=== PATIENT | female | born 2005 | race Caucasian/White ===

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

== ENCOUNTER 2024-02-26 18:44 | Emergency (ER) | payer MEDICAID, SELFPAY ==
[2024-02-26 18:47] VITALS: BP 109/73; PULSE 84; RESP 18; TEMP 36.7; O2SAT 100; BMI 21.8
--- NOTE | 2024-02-26 18:58 | CRLHL7_ITS ---
For Patients: As a result of the Century Cures Act, medical imaging exams and procedure reports are released immediately into your electronic medical record. You may view this report before your referring provider. If you have questions, please contact your health care provider. INDICATION: Spotting. TECHNIQUE: Ultrasound OB pelvis transvaginal. Real-time guadarrama-scale imaging of the pelvis was performed. COMPARISON: None. FINDINGS: There is a single intrauterine gestation. No cardiac activity is identified. The embryo`s crown rump length measurement of 0.3 cm corresponds to a gestational age of 5 weeks 6 days with a sonographic due date of 10/21/2024. Yolk sac is not visualized. The placenta has not yet developed. There is sign of perigestational hemorrhage, with crescentic shape hypoechoic structure adjacent to the gestational sac measuring 1.7 x 1 x 0.4 cm. The ovaries are of normal size. Corpus luteal cyst in the left ovary. There are no suspicious fluid collections noted in the cul-de-sac. IMPRESSION: 1. Single intrauterine without cardiac activity identified. Differential considerations include early versus early loss. Recommend serial beta HCG and follow-up pelvic ultrasound as clinically indicated. 2. Small subchorionic hemorrhage. Dictated by Kel Flower MD @ 02/26/2024 9:16:13 PM (Electronically Signed)
--- NOTE | 2024-02-26 18:58 | ED.GENADULT ---
HPI - General Adult General Chief complaint: Vaginal Bleeding <Chaya Martinez MD - Last Filed: 02/26/24 19:02> Stated complaint: 7 week , having spotting <Chaya Martinez MD - Last Filed: 02/26/24 19:02> Time Seen by Provider: 02/26/24 18:45 <Chaya Martinez MD - Last Filed: 02/26/24 19:02> Source: patient <Chaya Martinez MD - Last Filed: 02/26/24 19:02> Mode of arrival: ambulatory <Chaya Martinez MD - Last Filed: 02/26/24 19:02> Limitations: no limitations <Chaya Martinez MD - Last Filed: 02/26/24 19:02> History of Present Illness HPI narrative: 18-year-old female at 7 weeks gestation presents today with vaginal spotting. She states that it occurred for about 1 hour today. She denies other symptoms including dizziness, lightheadedness chest pain or abdominal pain. No cramping. Denies any current medical issues. Denies taking any medications. <Chaya Martinez MD - Last Filed: 02/26/24 19:02> Related Data Home medications: Home Medications ?Medication ?Instructions ?Recorded ?Confirmed No Known Home Medications 10/10/23 02/26/24 <Chaya Martinez MD - Last Filed: 02/26/24 19:02> Allergies/adverse reactions: Allergies Allergy/AdvReac Type Severity Reaction Status Date / Time No Known Drug Allergies Allergy Verified 02/26/24 18:53 <Chaya Martinez MD - Last Filed: 02/26/24 19:02> Review of Systems Status of ROS: Reports: 10 or more systems reviewed and unremarkable except as noted in History and below <Chaya Martinez MD - Last Filed: 02/26/24 19:02> PFSH PFSH Social History: Social History Smoking Status: Never smoker Do you use any of these nicotine containing products: None and Vaping Products How often do you have a drink containing alcohol: never How often do you have six or more drinks on one occasion: Never AUDIT-C Alcohol total score: 0 Non-prescribed substance use: denies use <Chaya Martinez MD - Last Filed: 02/26/24 19:02> Exam Narrative: Exam Narrative: Well-nourished well-developed patient in no acute distress. Alert and oriented. Answers questions appropriately. Mood and affect are appropriate. Thoughts are goal oriented and rational. No tangential or magical thinking noted. Patient speaks in full sentences without needing to catch her breath. HEENT: Normocephalic atraumatic. Pupils are equally round reactive to light. Extraocular muscles are intact. Conjunctivae are moist without any icterus noted. Moist mucous membranes. Cardiovascular: Heart is regular rate and rhythm. Lungs: Clear to auscultation bilaterally . Abdomen: Soft and nontender nondistended with normal bowel sounds. Extremities: Bilateral lower extremities are without edema. Skin: Well perfused without any obvious rashes. <Chaya Martinez MD - Last Filed: 02/26/24 19:02> Const: Vital Signs, click to edit/add: Vital Signs - 24 hr 02/26/24 18:47 Temperature 98.1 F Pulse Rate [Right Pulse Oximeter] 84 Respiratory Rate 18 Blood Pressure [Ri ght Upper Arm] 109/73 Pulse Oximetry 100 Oxygen Delivery Me thod Room Air <Chaya Martinez MD - Last Filed: 02/26/24 19:02> Vital Signs, click to edit/add: Vital Signs - 24 hr 02/26/24 18:47 Temperature 98.1 F Pulse Rate [Right Pulse Oximeter] 84 Respiratory Rate 18 Blood Pressure [Ri ght Upper Arm] 109/73 Pulse Oximetry 100 Oxygen Delivery Me thod Room Air <Delano Chase DO - Last Filed: 02/26/24 21:22> Course Course ED Course: Will proceeded with obstetrical ultrasound. Care transferred to oncoming physician. <Chaya Martinez MD - Last Filed: 02/26/24 19:02> Vital Signs Vital signs: Initial Vital Signs Temperature 98.1 F 02/26/24 18:47 Temperature Source Temporal Artery Scan 02/26/24 18:47 Pulse Rate 84 02/26/24 18:47 Pulse Rhythm Regular 02/26/24 18:47 Respiratory Rate 18 02/26/24 18:47 Blood Pressure 109/73 02/26/24 18:47 Blood Pressure Mean 85 02/26/24 18:47 Blood Pressure Position Sitting 02/26/24 18:47 Pulse Oximetry 100 02/26/24 18:47 Oxygen Delivery Method Room Air 02/26/24 18:47 Vital Signs Temperature 98.1 F 02/26/24 18:47 Pulse Rate 84 02/26/24 18:47 Respiratory Rate 18 02/26/24 18:47 Blood Pressure 109/73 02/26/24 18:47 Pulse Oximetry 100 02/26/24 18:47 Oxygen Delivery Method Room Air 02/26/24 18:47 Temperature 98.1 F 02/26/24 18:47 Pulse Rate 84 02/26/24 18:47 Respiratory Rate 18 02/26/24 18:47 Blood Pressure 109/73 02/26/24 18:47 Pulse Oximetry 100 02/26/24 18:47 Oxygen Delivery Method Room Air 02/26/24 18:47 <Chaya Martinez MD - Last Filed: 02/26/24 19:02> Initial Vital Signs Temperature 98.1 F 02/26/24 18:47 Temperature Source Temporal Artery Scan 02/26/24 18:47 Pulse Rate 84 02/26/24 18:47 Pulse Rhythm Regular 02/26/24 18:47 Respiratory Rate 18 02/26/24 18:47 Blood Pressure 109/73 02/26/24 18:47 Blood Pressure Mean 85 02/26/24 18:47 Blood Pressure Position Sitting 02/26/24 18:47 Pulse Oximetry 100 02/26/24 18:47 Oxygen Delivery Method Room Air 02/26/24 18:47 Vital Signs Temperature 98.1 F 02/26/24 18:47 Pulse Rate 84 02/26/24 18:47 Respiratory Rate 18 02/26/24 18:47 Blood Pressure 109/73 02/26/24 18:47 Pulse Oximetry 100 02/26/24 18:47 Oxygen Delivery Method Room Air 02/26/24 18:47 Temperature 98.1 F 02/26/24 18:47 Pulse Rate 84 02/26/24 18:47 Respiratory Rate 18 02/26/24 18:47 Blood Pressure 109/73 02/26/24 18:47 Pulse Oximetry 100 02/26/24 18:47 Oxygen Delivery Method Room Air 02/26/24 18:47 <Delano Chase DO - Last Filed: 02/26/24 21:22> Medical Decision Making MDM Narrative Medical decision making narrative: Patient was signed out to me by my colleague pending ultrasound. Per epic chart review she is Rh positive. Does not require RhoGAM. Ultrasound was done showing a single intrauterine without cardiac activity identified. Differential includes early versus miscarriage. Serial beta-hCG was recommended. Beta-hCG was ordered and can be trended outpatient. She also has a small subchorionic hemorrhage. Patient will be discharged. She is agreeable to this plan. Patient's vital signs stayed stable throughout her time in the emergency department and she continues to be asymptomatic. <Delano Chase DO - Last Filed: 02/26/24 21:22> Imaging Data Pelvic ultrasound: Attestation: I have reviewed the pertinent imaging results. <Delano Chase DO - Last Filed: 02/26/24 21:22> Radiologist's impression: 1. Single intrauterine without cardiac activity identified. Differential considerations include early versus early loss. Recommend serial beta HCG and follow-up pelvic ultrasound as clinically indicated. 2. Small subchorionic hemorrhage. Dictated by Kel Flower MD @ 02/26/2024 9:16:13 PM <eDlano Chase DO - Last Filed: 02/26/24 21:22> Discharge Plan Discharge Clinical Impression: Subchorionic hemorrhage in first trimester <Chaya Martinez MD - Last Filed: 02/26/24 19:02> Patient Disposition: Home, Self-Care <Chaya Martinez MD - Last Filed: 02/26/24 19:02> Condition: Stable <Chaya Martinez MD - Last Filed: 02/26/24 19:02> Instructions: Subchorionic Hemorrhage (ED) <Chaya Martinez MD - Last Filed: 02/26/24 19:02> Additional Instructions: Follow-up with your OB provider early next week for repeat blood work and possible follow-up ultrasound. Inform them that you have a small subchorionic hemorrhage. Return to emergency department for new or worsening symptoms. <Chaya Martinez MD - Last Filed: 02/26/24 19:02> Prescriptions: No Action No Known Home Medications <Chaya Martinez MD - Last Filed: 02/26/24 19:02> Follow Up/Referrals: Provider,Not a Local [Primary Care Provider] - <Chaya Martinez MD - Last Filed: 02/26/24 19:02> Stand Alone Forms: [facility] Info Instructions <Chaya Martinez MD - Last Filed: 02/26/24 19:02>
--- OUTSIDE RECORDS SUMMARY | 2024-02-26 19:11 | XMS_ITS | Clinical Summary ---
Author Organization [facility] Address [place], [place] [address] Care Team Providers Care Sales Project Coordinator Name Role Phone Bryanna Gordon NP Primary Care Provider Allergies No known active allergies Medications Medication Sig Dispensed Refills Start Date End Date Status FLUoxetine (PROZAC) 10 mg capsuleIndications :Anxiety,Depressio n, recurrent (HC) Take 3 capsules daily in am. 90 Capsule 5 04/21/2023 Active hydrOXYzine HCL (ATARAX) 25 mg tabletIndications: Anxiety,Panic attack Take 1/2-1 tab daily as needed for anxiety,panic, situational stress. 25 Tablet 04/21/2023 Active Hospital, Clinic, or Other Facility Administered Medication Ordered Dose Route Frequency Start Date End Date Status medroxyPROGESTERone acetate (contraceptive) (DEPO-PROVERA) injection 150 mgIndications:Depo-Pr overa contraceptive status 150 mg IM Q 3 MONTHS (12 WEEKS) 08/28/2023 07/29/2024 Active Active Problems Problem Noted Date Diagnosed Date Less than 8 weeks gestation of 024 Overview (02/22/2024): Estimated Date of Delivery: 10/14/24 Patient's last menstrual period was 01/08/2024 (exact date). GBS: 28wk labs: Last Tdap: 04/11/22 Last Flu vaccine: none OB Labs: No Known Allergies OB History Para Term AB Living 2 1 1 0 0 1 SAB IAB Ectopic Multiple Live Births 0 0 0 0 1 # Outcome Date GA Lbr /2nd Weight Sex Type Anes PTL Lv 2 Current 1 Term 11/17/20 40w4d 3.23 kg (7 lb 2 oz) F Vag STEPHAN Name: Morena Past Medical History: . Date COVID 2021 Depression 2021 Migraine headache 2014 Past Surgical History: . Laterality Date NO PREVIOUS SURGERY #2 Problems (from 02/22/24 to present) No problems associated with this episode. Skylar Bliss RN ....02/22/2024 2:18 PM PTSD (post-traumatic stress disorder) 11/04/2021 Depression, recurrent 11/04/2021 Anxiety 11/04/2021 03/26/2020 Overview (09/05/2020): Estimated Date of Delivery: 11/07/20 Patient's last menstrual period was 02/01/2020 (exact date). Last Tdap- not on file Last Flu vaccine- not on file Glucose (GTT) result- Component Latest Ref Rng & Units 08/22/2020 HEMOGLOBIN 12.0 - 16.0 g/dL 11.1 (L) MCV 78 - 102 fL 89 TREPONEMA PALLIDUM Negative Negative GLUCOSE,GESTATIONAL 65 - 139 mg/dL 133 20 week US: FINDINGS: Sonographic imaging demonstrates a single living intrauterine gestation. Fetus demonstrates a regular cardiac rate of 146 beats per minute. Fetus has a breech orientation and longitudinal lie. The placenta lies anteriorly without evidence of placenta previa. Amniotic fluid volume appears normal. Single deepest vertical pocket: 4.6 cm. The cervix is closed and measures 4.7 cm in length. The composite ultrasound gestational age is calculated at 19 weeks 2 days with an estimated sonographic due date of November 12, 2020. No Known Allergies OB History Para Term AB Living 1 0 0 0 0 0 SAB TAB Ectopic Multiple Live Births 0 0 0 0 0 # Outcome Date GA Lbr /2nd Weight Sex Delivery Anes PTL Lv 1 Current Create lab flowsheet for OB labs- Component Latest Ref Rng & Units 03/03/2020 03/05/2020 03/12/2020 11:01 AM CHLAMYDIA PROBE Negative N GONORRHOEAE PROBE Negative ANTIBODY SCREEN Negative Negative SPECIMEN EXPIRATION DATE/TIME 03/15/20 23:59 HEMOGLOBIN 12.0 - 16.0 g/dL 12.3 MCV 78 - 102 fL 83 PLATELET COUNT 140 - 440 thou/cu mm 217 MPV 6.5 - 11.0 fL 12.2 (H) RUBELLA IGG ANTIBODY HIV-1/HIV-2 ANTIBODY Non-Reactive Non-Reactive HBSAG Nonreactive Nonreactive HEMOGLOBIN A1C SCREENING <=6.4 % 5.4 ABORH B Rh Positive TREPONEMA PALLIDUM Negative Negative Component Latest Ref Rng & Units 03/12/2020 03/12/2020 11:01 AM 11:01 AM CHLAMYDIA PROBE N GONORRHOEAE PROBE ANTIBODY SCREEN Negative SPECIMEN EXPIRATION DATE/TIME HEMOGLOBIN 12.0 - 16.0 g/dL MCV 78 - 102 fL PLATELET COUNT 140 - 440 thou/cu mm MPV 6.5 - 11.0 fL RUBELLA IGG ANTIBODY Negative 0.14 (L) HIV-1/HIV-2 ANTIBODY Non-Reactive HBSAG Nonreactive HEMOGLOBIN A1C SCREENING <=6.4 % ABORH TREPONEMA PALLIDUM Negative Past Medical History: . Date No significant family history Past Surgical History: . Laterality Date NO PREVIOUS SURGERY No data on file. Problems (from 03/12/20 to present) No problems associated with this episode. Sabiha Guzman RN.....03/26/2020 9:29 AM Estimated Date of Delivery Comme nts Yes 10/14/2024 Based on last me nstrual period of 01/08/2024 (Exact Date) Encounters Date Type Department Care Team Description 02/22/2024 1:00 PM STATIONARY BOILER FIREMAN Phone OB Encounter [facility] [address] [place] [address] Education (RN Ob Intake) 02/22/2024 Travel from Last 3 Months Immunizations Name Administration Dates Next Due HPV 9 (Gardasil 9) 04/21/2023,04/11/2022, 022 Hepatitis A (Peds) 04/21/2023,07/31/2022 Hepatitis B (Peds) 04/21/2023 MENINGOCOCCAL VACCINE 2 VIAL [id number] (MENVEO) 04/11/2022 MMR 07/31/2022,12/03/2021 Tdap 04/11/2022 Varicella Vaccine 07/31/2022,12/03/2021 Family History Medical History Relation Name Comments Addiction problem Father alcohol an d drugs Addiction problem Mother drugs and alcohol Relation Name Status Comments Father Mother Social History Tobacco Use Types Packs/Day Years Used Date Smoking Tobacco: Never Passive Smoke Exposure: Yes Smokeless Tobacco: Never Tobacco Cessation:Counseling Given: Not Answered Comments:grandma and mom smokes Alcohol Use Standard Drinks/Week Comments Not Currently 0 (1 standard drink = 0.6 oz pur e alcohol) PHQ-2 Answer Date Recorded PHQ-2 TOTAL SCORE 1 02/22/2024 Social Connections Answer Date Recorded Do you often feel lonely or isolated from those around you? 0 11/24/2023 Financial Resource Strain Answer Date R ecorded Difficulty of Paying Living Expenses 3 11/24/2023 Difficulty of Paying Living Expenses Not on file 11/24/2023 Food Insecurity Answer Date Recorded Do you worry your food will run out before you are able to buy more? 1 11/24/2023 Transportation Needs Answer Date Record ed Does lack of transportation keep you from medica l appointments? 1 11/24/2023 Does lack of transportation keep you from work, meetings or getting things that you need? 1 11/24/2023 Housing Stability Answer Date Recorded What is your housing situation today? 1 11/24/2023 Estimated Date of Delivery Comme nts Yes 10/14/2024 Based on last me nstrual period of 01/08/2024 (Exact Date) Sex and Gender Information Value Date Recorded Sex Assigned at Not on file Gender Identity Not on file Sexual Orientation Not on file Obstetrics History Para Term AB IAB SAB Ectopic Multiple Livin g Live Births 2 1 1 1 1 Date Outcome GA Total Labor Labor/2nd/3rd Weight Sex Type Anes PTL Stephan A1 A5 Name Clin 021 Term 40w 4d 3.23 kg (7 lb 2 oz) F Vag Livin g Morena Complications:None Delivery Location:Hospital Current Summary Episode Dates Number of Fetuses Estimated Date of Delivery 02/22/2024 - Present (02/26/2024) 10/14/2024 (set by Skylar Bliss, [place] on 02/22/2024 based on Last Menstrual Period on 01/08/2024 (Exact Date)) Dating Summary Based On [place] Diff Last Menstrual Period on 01/08/2024 (Exact Date) 10/14/2024 Working Alternate [place] Entry 10/14/2024 Same Notes Progress Notes - Phone OB En counter - 02/22/2024 - GA:6w3d 02/22/2024 - 6w3d - Skylar Bliss RN Virtual Visit: As the provider for this telephone service, I attest that I introduced myself to the patient, provided my credentials, disclosed my location, and determined that, based on a review of the patient's chart and/or a discussion with members of the patient's treatment team, a telephone visit is an appropriate and effective means of providing this service. The patient and I mutually agree that this visit is appropriate for telephone as well. Patient location (originating site city/[facility]): [place], [place] Provider location (distant site city/state): [place], [place] Video/Phone start time (include am/pm designation): 1:35 PM Video/Phone end time (include am/pm designation): 2:19 pm SUBJECTIVE: Karlene Gaviria is a 18 y.o. female, , who presents for OB education and intake Had positive test at home. This was Planned, Desired. Patient was not on contraception. Date Reliability: approximate (month known) WES[place] based on LMP: Estimated Date of Delivery: 10/14/24 Current symptoms include: Nausea:Yes Vomiting:No Breast tenderness:Yes Vaginal bleeding:No Vaginal discharge:Yes - clear discharge Pelvic cramping:No Fatigue:Yes Previous Delivery Type: normal vaginal delivery Occupation of patient: Not currently employed Name of Partner or Father of baby: Yaw. MENSTRUAL HISTORY: Patient's last menstrual period was 01/08/2024 (exact date).: Cycle Regularity: regular, every 28-30 days Past Medical History: . Date COVID 2021 Depression 2021 Migraine headache 2014 OB History Para Term AB Living 2 1 1 1 SAB IAB Ectopic Multiple Live Births 1 # Outcome Date GA Lbr /2nd Weight Sex Type Anes PTL Lv 2 Current 1 Term 11/17/20 40w4d 3.23 kg (7 lb 2 oz) F Vag STEPHAN 5P'S SUBSTANCE ABUSE SCREEN FOR ALCOHOL, DRUGS AND TOBACCO: Did any of your parents have a problem with using alcohol or drugs? Yes Do any of your friends (peers) have problems with drug or alcohol use? No Does your partner have a problem with drug or alcohol use? No Before you knew you were , how often did you drink beer, wine, wine coolers or liquor or use any kind of drug? Rarely In the past month, how often did you drink beer, wine, wine coolers or liquor or use any kind of drug? Not at all How much did you smoke, vape or use tobacco or nicotine in any form before you knew you were ? Former User -Quit Date 01/29/24, previously used vape products Genetic Screening Genetic Screening/Teratology Counseling- Includes patient, baby's father, or anyone in either family with: Patient's age 35 years or older as of estimated date of delivery: No Thalassemia (Persian, Setswana, Mediterranean, or background): MCV less than 80: No Neural tube defect (Meningomyelocele, Spina bifida, or Anencephaly): No Congenital heart defect: No Down syndrome: No Denis-Sachs (Ashkenazi Quaker, Cajun, Libyan Calvert): No Magda disease (Ashkenazi Quaker): No Familial dysautonomia (Ashkenazi Quaker): No Sickle cell disease or trait (): No Hemophilia or other blood disorders: No Muscular dystrophy: No Cystic fibrosis: No Sybil's chorea: No Intellectual disability and/or autism: No Other inherited genetic or chromosomal disorder: No Maternal metabolic disorder (eg. Type 1 diabetes, PKU): No Patient or baby's father had child with defects not listed above: No Recurrent loss, or a stillbirth: No Medications (including supplements, vitamins, herbs, or OTC drugs)/illicit/recreational drugs/alcohol since last menstrual period: Yes If yes, agent(s) and strength/dosage: vitamin CURRENT MEDICATIONS: Current Outpatient Medications Medication Sig FLUoxetine (PROZAC) 10 mg capsule Take 3 capsules daily in am. hydrOXYzine HCL (ATARAX) 25 mg tablet Take 1/2-1 tab daily as needed for anxiety,panic, situational stress. Current Facility-Administered Medications Medication Dose Route Frequency Last Rate medroxyPROGESTERone acetate (contraceptive) (DEPO-PROVERA) injection 150 mg 150 mg Intra-Muscular q 12 weeks Medications have been reviewed by me and are current to the best of my knowledge and ability. ALLERGIES: Patient has no known allergies. OBJECTIVE: LMP 01/08/2024 (Exact Date) ,URINE (no units) Date Value 11/24/2023 Negative ASSESSMENT/PLAN: No diagnosis found. EDUCATION/PATIENT INSTRUCTIONS - Advised patient to continue vitamin. - Discussed risk of using alcohol, tobacco, other drugs in . - Discussed healthy lifestyle in . - Provided online resources such as [facility] and [facility]. Discussed [id number] medications, and follow up. - Encouraged patient to call clinic at [phone] with any vaginal bleeding, fluid leaking from vagina, severe abdominal pain, nausea with severe vomiting, fever higher than 100.4F, painful urination, headache not relieved by Tylenol, or other concerns - labs - Patient informed to schedule 1st trimester dating ultrasound between 7-10 weeks. - Initial OB appointment with FP/OB scheduled. PHQ-9, and COVID-19 vaccine discussion to be completed at this visit. Future Appointments Date Time Provider Department Center 03/25/2024 12:40 PM Lin[facility] Iglesias MD [facility] Skylar Bliss RN .................... 02/22/2024 1:55 PM IONARY BOILER FIREMAN Last Filed Vital Signs Vital Sign Reading Time Taken Comments Blood Pressure 104/62 11/24/2023 4:37 PM CDT Pulse 72 11/24/2023 4:37 PM CDT Temperature 36.7 C (98.1 F) 04/03/2023 10:48 PM STATIONARY BOILER FIREMAN Respiratory Rate 14 04/21/2023 2:26 PM STATIONARY BOILER FIREMAN Oxygen Saturation 100% 11/24/2023 4:37 PM CDT Inhaled Oxygen Concentration - - Weight 68.9 kg (151 lb 12.8 oz) 11/24/2023 4:37 PM CDT Height 167.6 cm (5' 6) 04/21/2023 2:26 PM STATIONARY BOILER FIREMAN Body Mass Index - - Plan of Treatment Upcoming Encounters Date Type Department Care Team (Late st Contact Info) Description 03/16/2024 9:45 AM STATIONARY BOILER FIREMAN Ancillary Procedure [facility] [address] [place] [address] 03/16/2024 10:30 AM STATIONARY BOILER FIREMAN Orders Only [facility] [address] [place] [address] [place], [place] 03/25/2024 12:40 PM STATIONARY BOILER FIREMAN OB Encounter [facility] [address] [place] [address] Linette Iglesias MD [address] [place] [address] Health Maintenance Due Date Last Done Comments Hepatitis C screening for age 18-79 2022 COVID-19 vaccine series ( - 2023- season) 2023 Influenza for age 9-49 11/29/2023 BMI (ht and wt on same day) for age 18+ 04/21/2024 04/21/2023 Chlamydia for age 16-24 04/21/2024 04/21/19 24, 04/20/2020, 03/05/2020 Well Child Check for age 3-20 04/21/2024 04/21/2023, 04/11/2022 Depression screening for age 12+ 02/21/2025 02/22/2024, 04/21/2023, 07/31/2022, Additional history exists Tetanus booster 04/11/2032 04/11/2022 HIV for age 15-65 Completed 04/11/2022, 03/03/2020 Meningococcal series for age 11-21 Completed 04/11/2022 Tdap Completed 04/11/2022 HPV series for age 9-26 Completed 04/21/19 24, 04/11/2022, 12/03/2021 Pneumococcal series for age 6-64 Aged Out No longer eligible based on patient's age to complete this topic RSV vaccine for adults or (No Doses Required) Completed Procedures Procedure Name Priority Date/Time Associated Diagnosis Comments GC CHLAMYDIA TRACH PROBE Routine 04/21/2023 3:24 PM STATIONARY BOILER FIREMAN Screening for STD (sexually transmitted disease) LC HIV-1/O/2, 4TH GENERATION Routine 04/11/2022 4:44 PM STATIONARY BOILER FIREMAN Screening for HIV (human immunodeficiency virus) from Last 3 Months or Most Recently Relevant to Health Maintenance Results * GC CHLAMYDIA TRACH PROBE [[id number]] - urine (04/21/2023 3:24 PM STATIONARY BOILER FIREMAN) CHLAMYDIA PROBE Negative 8:23 [address] N GONORRHOEAE PROBE Negative 04/22/2023 8:23 [address] ST[address]ARY BOILER FIRE[facility] Other URINE SPECIMEN / Unknown Non-Blood / Unknown 04/21/2023 3:24 PM STATIONARY BOILER FIREMAN 04/21/2023 3:24 PM STATIONARY BOILER FIREMAN Bryanna Gordon NP MICROBIOLOGY [facility] [address] [place] [address], [place] * HIV-1/O/2, 4TH GENERATION (04/11/2022 4:44 PM STATIONARY BOILER FIREMAN) HIV Scr 4th Gen Non Reactive Non Reactive 04/16/2022 10:10 AM STATIONARY BOILER FIREMAN [facility] Comment: HIV Negative HIV-1/HIV-2 antibodies and HIV-1 p24 antigen were NOT detected. There is no laboratory evidence of HIV infection. Blood BLOOD SPECIMEN / Unknown Venipuncture / Unknown 04/11/2022 4:44 PM STATIONARY BOILER FIREMAN 04/11/2022 4:46 PM STATIONARY BOILER FIREMAN Narrative [facility] - 04/16/2022 10:10 AM STATIONARY BOILER FIREMAN Performed at: [address] [place] [address] [address] [address] [phone] Casket Upholsterer: Joe Cooper MD, Phone: [phone] Bryanna Gordon NP LABORATORY [facility] [address] [place] [phone], from Last 3 Months or Most Recently Relevant to Health Maintenance Care Teams Sales Project Coordinator Relationship Specialty Start Date End Date Bryanna Gordon NP [address] [place] [address] [place] [address] PCP - General Nurse Practitioner - Family 12/05/21
[2024-02-26 21:10] VITALS: BP 112/75; PULSE 79; RESP 18; TEMP 36.7; O2SAT 100
[2024-02-26 21:50] VITALS: BP 112/75; PULSE 79; RESP 18; TEMP 36.7
== END 2024-02-26 21:51 | disposition home or self-care (01) ==
PROVIDERS: Emergency Provider Student in an Organized Health Care Education/Training Program
DX: O46.8X1 Other antepartum hemorrhage, first trimester (principal); Z3A.01 Less than 8 weeks gestation of pregnancy
CPT/HCPCS: 36415; 76817; 84702; 99283; 99284

== ENCOUNTER 2024-04-13 20:25 | Emergency (ER) | payer MEDICAID, SELFPAY ==
--- OUTSIDE RECORDS SUMMARY | 2024-04-13 20:28 | XMS_ITS | Clinical Summary ---
Author Organization [facility] Address [place], [place] [address] Care Team Providers Care Gut Carrier Name Role Phone Bryanna Gordon NP Primary Care Provider Allergies No known active allergies Medications FLUoxetine (PROZAC) 10 mg capsuleIndicat ions:Anxiety,D epression, recurrent (HC) Take 3 capsules daily in am. 90 Capsule 5 4 03/29/20 24 Discontin ued(*Mimi ent states no longer taking) hydrOXYzine HCL (ATARAX) 25 mg tabletIndicati ons:Anxiety,Pa angelica attack Take 1/2-1 tab daily as needed for anxiety,panic, situational stress. 25 Tablet 4 03/29/20 24 Discontin ued(*Mimi ent states no longer taking) Hospital, Clinic, or Other Facility Administered Medication Ordered Dose Route Frequency Start Date End Date Status medroxyPROGESTERone acetate (contraceptive) (DEPO-PROVERA) injection 150 mgIndications:Depo- Provera contraceptive status 150 mg IM Q 3 MONTHS (12 WEEKS) 08/28/2023 4 Discontinued Active Problems Problem Noted Date Diagnosed Date [...] Encounters Date Type Department Care Team Description 04/06/2024 Telephone [facility] [address] [place] [address] Yasmin Rodriguez MD Appointment (no showed appt for women's center ) 03/29/2024 2:40 PM EXECUTIVE DIRECTOR GLOBAL BRAND MARKETING Telemedicine [facility] [address] [place] [address] Yasmin Rodriguez MD Care (MISCARRIAGE ) 03/29/2024 Telephone [facility] [address] [place] [address] Yasmin Rodriguez MD Appointment 03/29/2024 Travel 03/28/2024 Telephone [facility] [address] [place] [address] Linette Iglesias MD Appointment 03/22/2024 11:00 AM EXECUTIVE DIRECTOR GLOBAL BRAND MARKETING Orders Only [facility] [address] [place] [address] Lab, [place] Lab 03/22/2024 Travel 03/18/2024 Telephone [facility] [address] [place] [address] Linette Iglesias MD Results; Appointment 03/18/2024 Travel 03/16/2024 10:30 AM EXECUTIVE DIRECTOR GLOBAL BRAND MARKETING Orders Only [address] [place] [address] Lab, [place] Lab 03/16/2024 9:45 AM EXECUTIVE DIRECTOR GLOBAL BRAND MARKETING Ancillary Procedure [facility] [address] [place] [address] 03/16/[address] [place] [address] Linette Iglesias MD Imaging (Abnormal dating US, concern for early SAB) 03/16/2024 Travel 02/22/2024 1:00 PM EXECUTIVE DIRECTOR GLOBAL BRAND MARKETING Phone OB Encounter [address] [place] [address] Education (RN Ob Intake) 02/22/2024 Travel from [...] drink = 0.6 oz pur e alcohol) [facility] Utilities Answer Date Recorded Do you have trouble paying f or utilities (for example, heat, electricity, water, phone)? Yes 11/24/2023 PHQ-2 Answer Date Recorded PHQ-2 TOTAL SCORE [...] is your housing situation today? 1 11/24/2023 Interpersonal Safety Answer Date Record ed Are you being hit, kicked, p ushed or yelled at (see row info)? No 04/03/2023 Interpersonal Safety Abuse 12 - 18 Not on file 04/03/2023 Interpersonal Safety Ambulatory Vulnerability No t on file 04/03/2023 Estimated Date of Delivery Comme nts Yes 10/14/2024 Based on last me nstrual period of 01/08/2024 (Exact Date) Sex and Gender Information Value Date Recorded Sex Assigned at Not on file Legal Sex Female 7:19 AM EXECUTIVE DIRECTOR GLOBAL BRAND MARKETING Gender Identity Not on file Sexual Orientation [...] Estimated Date of Delivery 02/22/2024 - Present (04/13/2024) 10/14/2024 (set by Skylar Bliss, RN on 02/22/2024 based on Last Menstrual Period [...] telephone as well. Patient location (originating site city/state): [place], [place] Provider location (distant site city/state): [place], [place] Video/Phone start time (include am/pm designation): [...] of estimated date of delivery: No Thalassemia ([place], Maltese, Mediterranean, or background): MCV less than 80: No Neural tube defect (Meningomyelocele, Spina bifida, or Anencephaly): No Congenital heart defect: No Down syndrome: No Denis-Sachs (Ashkenazi Sikh, Cajun, Bulgarian [place]): No Magda disease (Ashkenazi Sikh): No Familial dysautonomia (Ashkenazi Sikh): No Sickle cell disease or trait (): No Hemophilia or other blood disorders: No Muscular dystrophy: No Cystic fibrosis: No [place]'s chorea: No Intellectual disability and/or autism: No [...] . - Provided online resources such as [employer] and [employer]. Discussed [id number] medications, and follow up. - Encouraged patient to call clinic at [phone] with any vaginal bleeding, fluid leaking from [...] Center 03/25/2024 12:40 PM Linette Iglesias MD [facility] Skylar Bliss RN .................... 02/22/2024 1:55 PM UTIVE DIRECTOR GLOBAL BRAND MARKETING Last Filed Vital Signs Vital Sign Reading Time Taken Comments Blood Pressure 104/62 11/24/2023 4:37 PM CDT Pulse 72 11/24/2023 4:37 PM CDT Temperature 36.7 C (98.1 F) 04/03/2023 10:48 PM EXECUTIVE DIRECTOR GLOBAL BRAND MARKETING Respiratory Rate 14 04/21/2023 2:26 PM EXECUTIVE DIRECTOR GLOBAL BRAND MARKETING Oxygen Saturation 100% 11/24/2023 4:37 PM CDT Inhaled Oxygen Concentration - - Weight 68.9 kg (151 lb 12.8 oz) 11/24/2023 4:37 PM CDT Height 167.6 cm (5' 6) 04/21/2023 2:26 PM EXECUTIVE DIRECTOR GLOBAL BRAND MARKETING Body Mass Index - - Plan of Treatment Health Maintenance Due Date Last Done Comments Hepatitis C screening for age 18-79 2022 COVID-19 vaccine series ( season) 2023 Influenza for age 9-49 11/29/2023 [...] 24, 04/11/2022, 12/03/2021 Pneumococcal series for age 6-49 Aged Out No longer eligible based on patient's age to complete this topic RSV vaccine for adults or (No Doses Required) Completed Procedures Procedure Name Priority Date/Time Associated Diagnosis Comments HCG BETA QUANT, STAT 03/22/2024 10:46 AM EXECUTIVE DIRECTOR GLOBAL BRAND MARKETING Abnormal obstetric ultrasound scan 9 weeks gestation of US OB ANY TRI TV Routine 03/16/2024 10:5 8 AM EXECUTIVE DIRECTOR GLOBAL BRAND MARKETING Encounter for supervision of other normal in first trimester HCG BETA QUANT, STAT 03/16/2024 10:26 AM EXECUTIVE DIRECTOR GLOBAL BRAND MARKETING Abnormal obstetric ultrasound scan 9 weeks gestation of GC CHLAMYDIA TRACH PROBE Routine 04/21/2023 3:24 PM EXECUTIVE DIRECTOR GLOBAL BRAND MARKETING Screening for STD (sexually transmitted disease) LC HIV-1/O/2, 4TH GENERATION Routine 04/11/2022 4:44 PM EXECUTIVE DIRECTOR GLOBAL BRAND MARKETING Screening for HIV (human immunodeficiency virus) from Last 3 Months or Most Recently Relevant to Health Maintenance Results * STAT hCG Beta Quant, Serum (03/22/2024 10:46 AM EXECUTIVE DIRECTOR GLOBAL BRAND MARKETING) Only the most recent of2 resultswithin the time period is included. HCG BETA QUANT,PREGNANC Y 138,064 mIU/mL 03/22/2024 2:52 PM EXECUTIVE DIRECTOR GLOBAL BRAND MARKETING [facility] Blood BLOOD SPECIMEN / Unknown [facility] Collect / Unknown 03/22/2024 10:46 AM EXECUTIVE DIRECTOR GLOBAL BRAND MARKETING 03/22/2024 10:46 AM EXECUTIVE DIRECTOR GLOBAL BRAND MARKETING Narrative [facility] - 03/22/2024 2:52 PM EXECUTIVE DIRECTOR GLOBAL BRAND MARKETING Expected Value for Healthy Non- premenopausal women <5.3mIU/mL FOR GESTATIONAL ASSESSMENT-See Range Table Below Weeks of gestation hCG mIU/mL 3 weeks gestation (5.8 - 71.2) 4 weeks gestation (9.5 - 750) 5 weeks gestation (217 - 7138) 6 weeks gestation (158 - 31,795) 7 weeks gestation (3,697 - 163,563) 8 weeks gestation (32,065 - 149,571) 9 weeks gestation (63,803 - 151,410) 10 weeks gestation (46,509 - 186,977) 12 weeks gestation (27,832 - 210,612) 14 weeks gestation (13,950 - 62,530) 15 weeks gestation (12,039 - 70,971) 16 weeks gestation (9,040 - 56,451) 17 weeks gestation (8,175 - 55,868) 18 weeks gestation (8,099 - 58,176) Biotin supplements may cause clinically significant interference for this test assay. If interference is suspected, it is strongly recommended that biotin is discontinued for at least one week prior to retesting. us Linette Iglesias MD CHEMISTRY Final Resul t [facility] [address] [place] [address], [place] * US OB ANY TRI TV (03/16/2024 10:58 AM EXECUTIVE DIRECTOR GLOBAL BRAND MARKETING) Anatomical Region Laterality Modality , 2or 3 TRIMESTER, 1ST TRIMESTER Ultrasound 03/16/2024 3:51 PM EXECUTIVE DIRECTOR GLOBAL BRAND MARKETING Impressions 03/16/2024 3:51 PM EXECUTIVE DIRECTOR GLOBAL BRAND MARKETING Nonviable gestation. Dictated by Thuan Menjivar MD @ 03/16/2024 3:51:55 PM (Electronically Signed) Narrative 03/16/2024 3:51 PM EXECUTIVE DIRECTOR GLOBAL BRAND MARKETING For Patients: As a result of the Cures Act, medical imaging exams and procedure reports are released immediately into your electronic medical record. You may view this report before your referring provider. If you have questions, please contact your health care provider. INDICATION: First trimester scan, establish dates. COMPARISON: None. TECHNIQUE: Real-time guadarrama-scale imaging of the pelvis was performed. FINDINGS: Irregular gestational sac is present with internal echoes/debris. The gestational sac measures 3.6 cm, 9 weeks 1 day. No pole. Left ovary normal. Right ovary not visualized. Abnormally enlarged yolk sac appears to be present measuring 1.3 cm. Procedure Note Thuan Menjivar MD - 03/16/2024 For Patients: As a result of the Cures Act, medical imagingexams and procedure reports are released immediately into your electronicmedical record. You may view this report before your referring provider.If you have questions, please contact your health care provider. INDICATION: First trimester scan, establish dates. COMPARISON: None. TECHNIQUE: Real-time guadarrama-scale imaging of the pelvis was performed. FINDINGS: Irregular gestational sac is present with internal echoes/debris. Thegestational sac measures 3.6 cm, 9 weeks 1 day. No pole. Left ovarynormal. Right ovary not visualized. Abnormally enlarged yolk sac appearsto be present measuring 1.3 cm. IMPRESSION: Nonviable gestation. Dictated by Thuan Menjivar MD @ 03/16/2024 3:51:55 PM (Electronically Signed) us Linette Iglesias MD Final Resul t * GC CHLAMYDIA TRACH PROBE [[id number]] - urine (04/21/2023 3:24 PM EXECUTIVE DIRECTOR GLOBAL BRAND MARKETING) CHLAMYDIA PROBE Negative 8:23 PM EXECUTIVE DIRECTOR GLOBAL BRAND MARKETING [facility] N GONORRHOEAE PROBE Negative 04/22/2023 8:23 PM EXECUTIVE DIRECTOR GLOBAL BRAND MARKETING [facility] Other URINE SPECIMEN / Unknown Non-Blood / Unknown 04/21/2023 3:24 PM EXECUTIVE DIRECTOR GLOBAL BRAND MARKETING 04/21/2023 3:24 PM EXECUTIVE DIRECTOR GLOBAL BRAND MARKETING Bryanna Gordon FUR PULLER MICROBIOLOGY Final Result [facility] [address] [place] [address], * HIV-1/O/2, 4TH GENERATION (04/11/2022 4:44 PM EXECUTIVE DIRECTOR GLOBAL BRAND MARKETING) HIV Scr 4th Gen Non Reactive Non Reactive 04/16/2022 10:10 AM EXECUTIVE DIRECTOR GLOBAL BRAND MARKETING [facility] Comment: HIV Negative HIV-1/HIV-2 antibodies and HIV-1 p24 antigen were NOT detected. There is no laboratory evidence of HIV infection. Blood BLOOD SPECIMEN / Unknown Venipuncture / Unknown 04/11/2022 4:44 PM EXECUTIVE DIRECTOR GLOBAL BRAND MARKETING 04/11/2022 4:46 PM EXECUTIVE DIRECTOR GLOBAL BRAND MARKETING Narrative [facility] ([facility]) - 04/16/2022 10:10 AM EXECUTIVE DIRECTOR GLOBAL BRAND MARKETING Performed at: [address] [place] [address] [facility] [address] [place] [id number] Brass Finisher: Joe Cooper MD, Phone: [phone] Bryanna Gordon [facility] Final Result [facility] ([facility]) [address] [place] [address], from Last 3 Months or Most Recently Relevant to Health Maintenance Insurance ELIF IRWIN HB ONLY * Guarantor: Laquita Acosta Account Type Relation to Patient Date of Phone Billing Address Personal/Family Hospice Patient Care Secretary [address] [place] [id number] MEDICAID Care Teams Gut Carrier Relationship Specialty Start Date End Date Bryanna Gordon NP [address] [place] [address] PCP - General Nurse Practitioner - Family 12/05/21
--- OUTSIDE RECORDS SUMMARY | 2024-04-13 20:57 | XMS_ITS | Clinical Summary ---
Author Organization [facility] Address [place], [place] [address] Care Team Providers Care Expense Clerk Name Role Phone Bryanna Gordon NP Primary [...] Type Department Care Team Description 04/06/2024 Telephone [facility] [address] [place] [address] Yasmin Rodriguez MD Appointment (no showed appt for women's center ) 03/29/2024 2:40 PM SPORTS ANALYST Telemedicine [facility] [address] [place] [address] Yasmin Rodriguez MD Care (MISCARRIAGE ) 03/29/2024 Telephone [facility] [address] [place] [address] Yasmin Rodriguez MD Appointment 03/29/2024 Travel 03/28/2024 Telephone [facility] [address] [place] [address] Linette Iglesias MD Appointment 03/22/2024 11:00 AM SPORTS ANALYST Orders Only [facility] [address] [place] [address] Lab, [place] Lab 03/22/2024 Travel 03/18/2024 Telephone [facility] [address] [place] [address] Linette Iglesias MD Results; Appointment 03/18/2024 Travel 03/16/2024 10:30 AM SPORTS ANALYST Orders Only [address] [place] [address] Lab, [place] Lab 03/16/2024 9:45 AM SPORTS ANALYST Ancillary Procedure [facility] [address] [place] [address] 03/16/[address] [place] [address] Linette Iglesias MD Imaging (Abnormal dating US, concern for early SAB) 03/16/2024 Travel 02/22/2024 1:00 PM SPORTS ANALYST Phone OB Encounter [address] [place] [address] Education (RN Ob Intake) 02/22/2024 Travel from [...] drink = 0.6 oz pur e alcohol) [facility] Utilities Answer Date Recorded Do you [...] on file Legal Sex Female 7:19 AM SPORTS ANALYST Gender Identity Not on file Sexual Orientation [...] as well. Patient location (originating site city/state): [place], [place] Provider location (distant site city/state): [place], [place] Video/Phone start time (include am/pm designation): [...] of estimated date of delivery: No Thalassemia (Ecuadorean, Lao, Mediterranean, or background): MCV less than 80: No Neural tube defect (Meningomyelocele, Spina bifida, or Anencephaly): No Congenital heart defect: No Down syndrome: No Denis-Sachs (Ashkenazi Latter Day, Cajun, Occitan [place]): No Magda disease (Ashkenazi Latter Day): No Familial dysautonomia (Ashkenazi Latter Day): No Sickle cell disease or trait (): No Hemophilia or other blood disorders: No Muscular dystrophy: No Cystic fibrosis: No [place]'s chorea: No Intellectual disability and/or autism: No [...] . - Provided online resources such as [employer] [facility] and [address]. Discussed [id number]-[id number]-[id number] medications, and follow up. - Encouraged patient to call clinic at [phone] with any vaginal bleeding, fluid leaking from [...] Center 03/25/2024 12:40 PM Linette Iglesias MD [facility] Skylar Bliss RN .................... 02/22/2024 1:55 PM TS ANALYST Last Filed Vital Signs Vital Sign Reading Time Taken Comments Blood Pressure 104/62 11/24/2023 4:37 PM CDT Pulse 72 11/24/2023 4:37 PM CDT Temperature 36.7 C (98.1 F) 04/03/2023 10:48 PM SPORTS ANALYST Respiratory Rate 14 04/21/2023 2:26 PM SPORTS ANALYST Oxygen Saturation 100% 11/24/2023 4:37 PM CDT Inhaled Oxygen Concentration - - Weight 68.9 kg (151 lb 12.8 oz) 11/24/2023 4:37 PM CDT Height 167.6 cm (5' 6) 04/21/2023 2:26 PM SPORTS ANALYST Body Mass Index - - Plan of [...] HCG BETA QUANT, STAT 03/22/2024 10:46 AM SPORTS ANALYST Abnormal obstetric ultrasound scan 9 weeks gestation of US OB ANY TRI TV Routine 03/16/2024 10:5 8 AM SPORTS ANALYST Encounter for supervision of other normal in first trimester HCG BETA QUANT, STAT 03/16/2024 10:26 AM SPORTS ANALYST Abnormal obstetric ultrasound scan 9 weeks gestation of GC CHLAMYDIA TRACH PROBE Routine 04/21/2023 3:24 PM SPORTS ANALYST Screening for STD (sexually transmitted disease) LC HIV-1/O/2, 4TH GENERATION Routine 04/11/2022 4:44 PM SPORTS ANALYST Screening for HIV (human immunodeficiency virus) from Last 3 Months or Most Recently Relevant to Health Maintenance Results * STAT hCG Beta Quant, Serum (03/22/2024 10:46 AM SPORTS ANALYST) Only the most recent of2 resultswithin the time period is included. HCG BETA QUANT,PREGNANC Y 138,064 mIU/mL 03/22/2024 2:52 PM SPORTS ANALYST [facility] Blood BLOOD SPECIMEN / Unknown [facility] Collect / Unknown 03/22/2024 10:46 AM SPORTS ANALYST 03/22/2024 10:46 AM SPORTS ANALYST Narrative [facility] - 03/22/2024 2:52 PM SPORTS ANALYST Expected Value for Healthy Non- premenopausal women [...] Linette Iglesias MD CHEMISTRY Final Resul t [facility] [address] [place] [address], [place] * US OB ANY TRI TV (03/16/2024 10:58 AM SPORTS ANALYST) Anatomical Region Laterality Modality , 2or 3 TRIMESTER, 1ST TRIMESTER Ultrasound 03/16/2024 3:51 PM SPORTS ANALYST Impressions 03/16/2024 3:51 PM SPORTS ANALYST Nonviable gestation. Dictated by Thuan Menjivar MD @ 03/16/2024 3:51:55 PM (Electronically Signed) Narrative 03/16/2024 3:51 PM SPORTS ANALYST For Patients: As a result of the [...] Resul t * GC CHLAMYDIA TRACH PROBE [[id number]] - urine (04/21/2023 3:24 PM SPORTS ANALYST) CHLAMYDIA PROBE Negative 8:23 PM SPORTS ANALYST [facility] N GONORRHOEAE PROBE Negative 04/22/2023 8:23 PM SPORTS ANALYST [facility] Other URINE SPECIMEN / Unknown Non-Blood / Unknown 04/21/2023 3:24 PM SPORTS ANALYST 04/21/2023 3:24 PM SPORTS ANALYST Bryanna Gordon CAGE CLERK MICROBIOLOGY Final Result [facility] [address] [place] [address], * HIV-1/O/2, 4TH GENERATION (04/11/2022 4:44 PM SPORTS ANALYST) HIV Scr 4th Gen Non Reactive Non Reactive 04/16/2022 10:10 AM SPORTS ANALYST [facility] Comment: HIV Negative HIV-1/HIV-2 antibodies and HIV-1 p24 antigen were NOT detected. There is no laboratory evidence of HIV infection. Blood BLOOD SPECIMEN / Unknown Venipuncture / Unknown 04/11/2022 4:44 PM SPORTS ANALYST 04/11/2022 4:46 PM SPORTS ANALYST Narrative [facility] ([facility]) - 04/16/2022 10:10 AM SPORTS ANALYST Performed at: [address] [place] [address] [facility] [address] [place] [id number] [employer]iconductor Wafers Saw Operator: Joe Cooper MD, Phone: [phone] Bryanna Gordon CAGE CLERK LABORATORY Final Result [facility] ([facility]) [address] [place] [address], from Last 3 Months or Most Recently Relevant to Health Maintenance Insurance ELIF IRWIN HB ONLY MEDICAID Care Teams Expense Clerk Relationship Specialty Start Date End Date Bryanna Gordon NP [address] [place] [id number] PCP - General Nurse Practitioner - Family 12/05/21
== END 2024-04-13 21:04 | disposition left against medical advice (07) ==
LOC: ED 20:56
DX: Z53.21 Procedure and treatment not carried out due to patient leaving prior to being seen by health care provider (principal)

== ENCOUNTER 2024-04-20 17:42 | Day surgery (SDC) | payer MEDICAID, SELFPAY ==
[2024-04-20] VITALS (15 sets, daily range): BP systolic 90–118; BP diastolic 49–73; PULSE 64–97; RESP 14–20; TEMP 36.4–36.8; O2SAT 94–100; BMI 23.2
--- OUTSIDE RECORDS SUMMARY | 2024-04-20 17:44 | XMS_ITS | Continuity of Care Document ---
Author Organization [facility] Address [address] [place] [phone] Phone Care Team Providers Care Data Analysis Manager Name Role Phone Unavailable Unavailable Unavailable Allergies, Adverse Reactions, Alerts Substance Reaction Status Criticality No Known Allergies Active No Inform ation Procedures Procedure Date OFFICE/OUTPATIENT VISIT, [facility] Advance Directives Directive Yes / No Effective Date File Name No Information Encounters Encounter Description Practice Location Reason(s) For Visit Diagnoses Date Provider Providers Copied on Encounter OFFICE/OUTPA TIENT VISIT, [facility], [address] [place] [address], [phone] , [place] tel:[phone] [facility] Dizziness (chief complaint) Contracept ion (chief complaint) Body mass index (BMI) 19 or less, adultDizzinessEnco unter for education about contraceptive use No Information Family History Family Member Type Diagnosis Age At Onset No Information Payers Payer name Insurance type Covered green party ID Carlitosa raegan(s) Terry [facility] [id number] Social History Type Description Quantity Date Captured [...] Instruction Additional Infor meryl Education provided w ith educational documents on various options of controlPatient [...] Mental Status Date Cognitive Assessment Orientation - [place] ed to time, place, person, situation. Patient Care Teams Name Effective Dates (start - stop) Status Members No Information
--- OUTSIDE RECORDS SUMMARY | 2024-04-20 17:44 | XMS_ITS | Clinical Summary ---
Author Organization [facility] Address [place], [place] [address] Care Team Providers Care Hr Internship Name Role Phone Bryanna Gordon NP Primary [...] Encounters Date Type Department Care Team Description 04/19/2024 3:45 PM BILINGUAL STUDENT TUTOR Ancillary Procedure [facility] [address] [place] [address] Arrived 04/19/2024 3:20 PM BILINGUAL STUDENT TUTOR Office Visit [facility] [address] [place] [address] Patricia Llanes MD Wrist Injury (R wrist injury) 04/19/2024 Travel 04/19/2024 Nurse Triage [facility] [address] [place] [address] Bryanna Gordon NP Vaginal Bleeding 04/06/2024 Telephone [facility] [address] [place] [address] Yasmin Rodriguez MD Appointment (no showed appt for women[facility] center ) 03/29/2024 2:40 PM BILINGUAL STUDENT TUTOR Telemedicine [facility] [address] [place] [address] Yasmin Rodriguez MD Care (MISCARRIAGE ) 03/29/[address] [place] [address] Yasmin Rodriguez MD Appointment 03/29/2024 Travel 03/28/[address] [place] [address] Linette Iglesias MD Appointment 03/22/2024 11:00 AM BILINGUAL STUDENT TUTOR Orders Only [address] [place] [address] Lab[facility] [place] [facility] 03/22/2024 Travel 03/18/[address] [address] Linette Iglesias MD Results; Appointment 03/18/2024 Travel 03/16/2024 10:30 AM BILINGUAL STUDENT TUTOR Orders Only [address] [place] [address] [facility] [place] [facility] 03/16/2024 9:45 AM BILINGUAL STUDENT TUTOR Ancillary Procedure [address] [address] 03/16/[address] [address] Linette Iglesias MD Imaging (Abnormal dating US, concern for early SAB) 03/16/2024 Travel 02/22/2024 1:00 PM BILINGUAL STUDENT TUTOR Phone OB Encounter [address] [address] Education (RN Ob Intake) 02/22/2024 Travel from [...] Ambulatory Vulnerability No t on file 04/03/2023 Utilities Answer Date Recorded Do you have trouble paying f or utilities (for example, heat, electricity, water, phone)? 1 11/24/2023 Estimated Date of Delivery Comme nts Yes 10/14/2024 Based on last me nstrual period of 01/08/2024 (Exact Date) Sex and Gender Information Value Date Recorded Sex Assigned at Not on file Legal Sex Female 7:19 AM BILINGUAL STUDENT TUTOR Gender Identity Not on file Sexual Orientation [...] Estimated Date of Delivery 02/22/2024 - Present (04/20/2024) 10/14/2024 (set by Skylar Bliss, RN on 02/22/2024 based on Last Menstrual Period on 01/08/2024 (Exact Date)) Dating Summary Based On [facility] [place] Diff Last Menstrual Period on 01/08/2024 (Exact Date) 10/14/2024 Working Alternate [facility] Entry 10/14/2024 Same Notes Progress Notes - Phone OB En counter - 02/22/2024 - GA:6w3d 02/22/2024 - 6w3d - Skylar Bliss, [place] Virtual Visit: As the provider for this [...] telephone as well. Patient location (originating site [facility] [place], [place] Provider location (distant site city/state): [place], [place] Video/Phone start time (include am/pm designation): [...] of estimated date of delivery: No Thalassemia (Nauruan, Spanish, Mediterranean, or background): MCV less than 80: No Neural tube defect (Meningomyelocele, Spina bifida, or Anencephaly): No Congenital heart defect: No Down syndrome: No Denis-Sachs (Ashkenazi Bahai, Cajun, Latvian [place]): No Magda disease (Ashkenazi Bahai): No Familial dysautonomia (Ashkenazi Bahai): No Sickle cell disease or trait (): [...] . - Provided online resources such as [employer] and [employer] Amelia. Discussed enji-boi-sfvebee medications, and follow up. - Encouraged patient to call clinic at [phone] with any vaginal bleeding, fluid leaking from [...] Center 03/25/2024 12:40 PM Linette Iglesias MD [facility] Skylar Bliss RN .................... 02/22/2024 1:55 PM NGUAL STUDENT TUTOR Last Filed Vital Signs Vital Sign Reading Time Taken Comments Blood Pressure 107/72 04/19/2024 3:33 PM BILINGUAL STUDENT TUTOR Pulse 110 04/19/2024 3:33 PM BILINGUAL STUDENT TUTOR Temperature 36.7 C (98.1 F) 04/03/2023 10:48 PM BILINGUAL STUDENT TUTOR Respiratory Rate 14 04/21/2023 2:26 PM BILINGUAL STUDENT TUTOR Oxygen Saturation 99% 04/19/2024 3:33 PM BILINGUAL STUDENT TUTOR Inhaled Oxygen Concentration - - Weight 65.6 kg (144 lb 9.6 oz) 04/19/2024 3:33 P M BILINGUAL STUDENT TUTOR Height 167.6 cm (5' 6) 04/21/2023 2:26 PM BILINGUAL STUDENT TUTOR Body Mass Index - - Plan of Treatment Upcoming Encounters Date Type Department Care Team (Late st Contact Info) Description 04/29/2024 10:50 AM BILINGUAL STUDENT TUTOR Office Visit [facility] [address] [place] [address] Nancy Vargas DO [address] [place] [address] Health Maintenance Due Date Last Done Comments [...] Procedure Name Priority Date/Time Associated Diagnosis Comments XR WRIST 3 VIEWS RIGHT Routine 04/19/2024 4:00 PM BILINGUAL STUDENT TUTOR Right wrist pain HCG BETA QUANT, STAT 03/22/2024 10:46 AM BILINGUAL STUDENT TUTOR Abnormal obstetric ultrasound scan 9 weeks gestation of US OB ANY TRI TV Routine 03/16/2024 10:5 8 AM BILINGUAL STUDENT TUTOR Encounter for supervision of other normal in first trimester HCG BETA QUANT, STAT 03/16/2024 10:26 AM BILINGUAL STUDENT TUTOR Abnormal obstetric ultrasound scan 9 weeks gestation of GC CHLAMYDIA TRACH PROBE Routine 04/21/2023 3:24 PM BILINGUAL STUDENT TUTOR Screening for STD (sexually transmitted disease) LC HIV-1/O/2, 4TH GENERATION Routine 04/11/2022 4:44 PM BILINGUAL STUDENT TUTOR Screening for HIV (human immunodeficiency virus) from Last 3 Months or Most Recently Relevant to Health Maintenance Results * XR WRIST 3 OR MORE VIEWS RIGHT (04/19/2024 4:00 PM BILINGUAL STUDENT TUTOR) Anatomical Region Laterality Modality WRISTS, WRIST R Computed Radiogr aphy 04/20/2024 7:14 AM BILINGUAL STUDENT TUTOR Narrative 04/20/2024 7:14 AM BILINGUAL STUDENT TUTOR For Patients: As a result of the Century Cures Act, medical imaging exams and procedure reports are released immediately into your electronic medical record. You may view this report before your referring provider. If you have questions, please contact your health care provider. Indication: Right wrist pain Technique: Right wrist 3 views Comparison: None Findings: Bones: Alignment is normal. No fractures or bone lesions. Joint spaces: Joint spaces are well maintained. No degenerative changes. Soft tissues: Unremarkable. Impression: Unremarkable right wrist series. Dictated by iDon Barger MD @ 04/20/2024 7:14:15 AM (Electronically Signed) Procedure Note Dion Barger MD - 04/20/2024 For Patients: As a result of the Century Cures Act, medical imagingexams and procedure reports are released immediately into your electronicmedical record. You may view this report before your referring provider.If you have questions, please contact your health care provider. Indication: Right wrist pain Technique: Right wrist 3 views Comparison: None Findings: Bones: Alignment is normal. No fractures or bone lesions. Joint spaces: Joint spaces are well maintained. No degenerative changes. Soft tissues: Unremarkable. Impression: Unremarkable right wrist series. Dictated by Dion Barger MD @ 04/20/2024 7:14:15 AM (Electronically Signed) us Patricia Llanes MD GENERAL IMAGING Fi nal Result * STAT hCG Beta Quant, Serum (03/22/2024 10:46 AM BILINGUAL STUDENT TUTOR) Only the most recent of2 resultswithin the time period is included. HCG BETA QUANT,PREGNANC Y 138,064 mIU/mL 03/22/2024 2:52 PM BILINGUAL STUDENT TUTOR [facility] Blood BLOOD SPECIMEN / Unknown [facility] / Unknown 03/22/2024 10:46 AM BILINGUAL STUDENT TUTOR 03/22/2024 10:46 AM BILINGUAL STUDENT TUTOR Narrative [facility] - 03/22/2024 2:52 PM BILINGUAL STUDENT TUTOR Expected Value for Healthy Non- premenopausal women [...] Linette Iglesias MD CHEMISTRY Final Resul t [facility] [address] [place] [address], [place] * US OB ANY TRI TV (03/16/2024 10:58 AM BILINGUAL STUDENT TUTOR) Anatomical Region Laterality Modality , 2or 3 TRIMESTER, 1ST TRIMESTER Ultrasound 03/16/2024 3:51 PM BILINGUAL STUDENT TUTOR Impressions 03/16/2024 3:51 PM BILINGUAL STUDENT TUTOR Nonviable gestation. Dictated by Thuan Menjivar MD @ 03/16/2024 3:51:55 PM (Electronically Signed) Narrative 03/16/2024 3:51 PM BILINGUAL STUDENT TUTOR For Patients: As a result of the [...] PM (Electronically Signed) us Linette Iglesias MD US Final Resul t * GC CHLAMYDIA TRACH PROBE [[id number]] - urine (04/21/2023 3:24 PM BILINGUAL STUDENT TUTOR) CHLAMYDIA PROBE Negative 8:23 PM BILINGUAL STUDENT TUTOR [facility] N GONORRHOEAE PROBE Negative 04/22/2023 8:23 PM BILINGUAL STUDENT TUTOR [facility] Other URINE SPECIMEN / Unknown Non-Blood / Unknown 04/21/2023 3:24 PM BILINGUAL STUDENT TUTOR 04/21/2023 3:24 PM BILINGUAL STUDENT TUTOR Bryanna Gordon NP MICROBIOLOGY Final Result [facility] [address] [place] [address], * HIV-1/O/2, 4TH GENERATION (04/11/2022 4:44 PM BILINGUAL STUDENT TUTOR) HIV Scr 4th Gen Non Reactive Non Reactive 04/16/2022 10:10 AM BILINGUAL STUDENT TUTOR [facility] ([facility] Comment: HIV Negative HIV-1/HIV-2 antibodies and HIV-1 p24 antigen were NOT detected. There is no laboratory evidence of HIV infection. Blood BLOOD SPECIMEN / Unknown Venipuncture / Unknown 04/11/2022 4:44 PM BILINGUAL STUDENT TUTOR 04/11/2022 4:46 PM BILINGUAL STUDENT TUTOR Narrative [facility] ([facility]) - 04/16/2022 10:10 AM BILINGUAL STUDENT TUTOR Performed at: [address] [place] [address] [place] [address], [place] [id number] Prep Person: Joe Cooper MD, Phone: [phone] us Bryanna Gordon NP LABORATORY Final Result [facility] (CET) [address] [place] [address], [place] from Last 3 Months or Most Recently Relevant to Health Maintenance Insurance [facility] [address] [place] [address] * Guarantor: Laquita Acosta Account Type Relation to Patient Date of Phone Billing Address 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
--- NOTE | 2024-04-20 18:10 | CRLHL7_ITS ---
For Patients: As a result of the Century Cures Act, medical imaging exams and procedure reports are released immediately into your electronic medical record. You may view this report before your referring provider. If you have questions, please contact your health care provider. INDICATION: Missed 03/16, pain, bleeding. TECHNIQUE: Ultrasound pelvis transabdominal. Real-time sonographic images with spectral and color Doppler imaging of the ovaries were obtained. COMPARISON: None. FINDINGS: Uterus: Enlarged, measuring 13.0 x 6.7 x 7.7 cm. Normal echotexture of the myometrium. No masses. Endometrium: The endometrial stripe is thickened to 2.5 cm containing areas of hyperemia and hypoechoic, possibly cystic, foci. The endometrial canal is distended by a large amount of simple fluid. Right ovary measures 2.9 x 2.2 x 2.1 cm. Left ovary measures 2.7 x 1.8 x 2.0 cm no ovarian or adnexal masses. Normal blood flow is demonstrated in the right ovary. Cul-de-sac: No significant free fluid. IMPRESSION: 1. Distended endometrial stripe measuring up to 2.5 cm with areas of hyperemia and possibly cystic foci. Findings could represent retained products of conception. Recommend correlation with beta HCG. 2. Distended endometrial canal by large amount of simple fluid. 3. Enlarged uterus. Dictated by Akira Colon MD @ 04/20/2024 7:59:46 PM (Electronically Signed)
--- NOTE | 2024-04-20 18:12 | ED_ITS ---
HPI - General Adult General Date Seen: 04/20/24 Chief complaint: OB/Uterine Contractions Stated complaint: 14 wks preg, miscarry, contractions very painful Time Seen by Provider: 04/20/24 18:06 Source: patient Mode of arrival: ambulatory Limitations: no limitations History of Present Illness HPI narrative: Patient is a 18-year-old female presenting to the emergency department for or abdominal/pelvic pain and vaginal bleeding. She states she was diagnosed with a miscarriage back in mid February, our notes show that this actually occurred on 02/25, in she was post a have a D&C done but was unable to get appointment scheduled as she did not have a vehicle to come in for the procedure. She states she was doing well but started noticing some spotting 5 days ago. The bleeding has gradually gotten worse and now she states she goes through a pad every 2 hours. She states she woke up this morning with some mild cramping which she describes feels like menstrual period but more severe in continues to worsen. Denies ever having pain like this before. Denies fevers, chills, chest pain, shortness of breath, headache, nausea, vomiting. States she has some lightheadedness earlier this morning but that has since resolved. Has not noticed any vaginal discharge. Denies dysuria. Has been 1 previous time 3 years ago and there was no complications. Related Data Home Medications ?Medication ?Instructions ?Recorded ?Confirmed No Known Home Medications 10/10/23 04/20/24 Allergies Allergy/AdvReac Type Severity Reaction Status Date / Time No Known Drug Allergies Allergy Verified 04/20/24 17:57 Review of Systems Status of ROS: Reports: 10 or more systems reviewed and unremarkable except as noted in History and below PFSH PFS Social History Smoking Status: Never smoker Do you use any of these nicotine containing products: None and Vaping Products How often do you have a drink containing alcohol: never How often do you have six or more drinks on one occasion: Never AUDIT-C Alcohol total score: 0 Non-prescribed substance use: denies use Exam Narrative: Exam Narrative: Const: Well-nourished, Well-developed, in mother distress Eyes: PERRL, no conjunctival injection, and symmetrical lids HENT: Atraumatic external nose and ears. Moist mucous membranes. Neck: Symmetric, trachea midline, No thyromegaly. CVS: RRR, No murmurs or gallops. Peripheral pulses 2+ and equal in all extremities RESP: Unlabored respiratory effort. Clear to auscultation bilaterally. GI: Notable pelvic tenderness and lower abdominal tenderness. Some mild upper abdominal tenderness. Guarding on palpation the lower abdomen. No distention. MSK:Extremities w/o deformity, Normal Active ROM Skin: Warm, Dry. No rashes or lesions. Neuro: Normal Muscle tone, No focal neurological deficits. Psych: Awake, Alert, & Oriented x3. Appropriate mood and affect. Const: Vital Signs, click to edit/add: Vital Signs - 24 hr 04/20/24 17:48 04/20/24 19:12 04/20/24 19:15 Temperature 98.2 F Pulse Rate 64 74 Pulse Rate [Right Pulse Oximeter] 97 Respiratory Rate 18 Blood Pressure [Ri ght Upper Arm] 102/64 Pulse Oximetry 98 99 95 Oxygen Delivery Me thod Room Air Course Vital Signs Vital signs: Initial Vital Signs Temperature 98.2 F 04/20/24 17:48 Temperature Source Temporal Artery Scan 04/20/24 17:48 Pulse Rate 97 04/20/24 17:48 Pulse Rhythm Regular 04/20/24 17:48 Pulse Strength 3+ Normal 04/20/24 17:48 Respiratory Rate 18 04/20/24 17:48 Blood Pressure 102/64 04/20/24 17:48 Blood Pressure Mean 76 04/20/24 17:48 Blood Pressure Position Sitting 04/20/24 17:48 Pulse Oximetry 98 04/20/24 17:48 Oxygen Delivery Method Room Air 04/20/24 17:48 Vital Signs Temperature 98.2 F 04/20/24 17:48 Pulse Rate 97 04/20/24 17:48 Respiratory Rate 18 04/20/24 17:48 Blood Pressure 102/64 04/20/24 17:48 Pulse Oximetry 98 04/20/24 17:48 Oxygen Delivery Method Room Air 04/20/24 17:48 Temperature 98.2 F 04/20/24 17:48 Pulse Rate 74 04/20/24 19:15 Respiratory Rate 18 04/20/24 17:48 Blood Pressure 102/64 04/20/24 17:48 Pulse Oximetry 95 04/20/24 19:15 Oxygen Delivery Method Room Air 04/20/24 17:48 Medications Administered Medications: Discontinued Medications Generic Name Dose Route Start Last Admin Trade Name Genny PRN Reason Stop Dose Admin Lorazepam 0.5 mg 04/20/24 18:58 04/20/24 19:03 Lorazepam 0.5 Mg Tablet PO 04/20/24 18:59 0.5 mg ONCE ONE Administration Morphine Sulfate 4 mg 04/20/24 18:10 04/20/24 18:25 Morphine 4 Mg/Ml Inj IVP 04/20/24 18:11 4 mg ONCE ONE Administration Morphine Sulfate 4 mg 04/20/24 18:53 04/20/24 19:02 Morphine 4 Mg/Ml Inj IVP 04/20/24 18:54 4 mg ONCE ONE Administration Ondansetron HCl 4 mg 04/20/24 18:32 04/20/24 18:53 Ondansetron 2 Mg/Ml Inj IVP 04/20/24 18:33 4 mg ONCE ONE Administration Medical Decision Making MDM Narrative Medical decision making narrative: Patient is a 18-year-old female presenting to emergency department for pelvic pain and vaginal bleeding. My 1st concern would be for retained products of conception. Will need to do ultrasound for better evaluation. Also some concerning for endometrioid is although she has not had any fevers. Will check a CBC, CMP, test. Morphine given for pain. Also will also help rule out ovarian torsion. If everything looks normal then will move on to a CT scan for evaluation possible appendicitis, diverticulitis, SBO. This last 2 seem relatively unlikely considering her age clinical history. Given morphine for pain and Zofran for nausea. We attempted to bring her back for ultrasound of the field technical specialist states she is unable to do the ultrasound due to the patient's pelvic tenderness. Will give her more morphine and give her some Ativan for anxiety to see if it help. test is positive. CBC and CMP showed no acute concerning abnormalities. A 2nd ultrasound was attempted and again cannot do transvaginal but a transabdominal was performed and the field technical specialist states that it appears to be retained products of conception. I informed the on-call OB Gyne provider, Dr. Archibald, who states she will come in to evaluate the patient. Also able find in [facility] that she was being [facility] to [facility] and eventually had an ultrasound 03/16 showing a miscarriage. They were following her quantitative HCGs and they did start to decline. Repeat beta-hCG claims back at 6021. Results of the ultrasound returned showing signs of retained products of conception. OB evaluated the patient and she will be brought to surgery. Her vital signs have been stable while in the emergency department Lab Data Labs: Lab Results 04/20/24 04/20/24 Range/Units 18:23 19:41 WBC 10.04 (4.50-11.00) K/uL RBC 4.72 (4.00-5.20) m/uL Hgb 12.6 (12.0-16.0) gm/dL Hct 38.3 (33.0-51.0) % MCV 81 (80-100) fL MCH 27 (26-34) pg MCHC 33 (32-36) gm/dL RDW Coeff of [place] 15.7 H (11.5-15.5) % Plt Count 198 (140-440) K/uL Neut % (Auto) 74.0 H (42.0-72.0) % Lymph % (Auto) 19.2 L (20-44) % [place] % (Auto) 5.1 (0.0-11.0) % Eos % (Auto) 1.2 (0.0-7.0) % Baso % (Auto) 0.4 (0.0-3.0) % Neut # (Auto) 7.40 H (1.7-7.0) K/uL Lymph # (Auto) 1.90 (0.90-2.90) K/uL [place] # (Auto) 0.50 (0.00-0.90) K/UL Eos # (Auto) 0.12 (0.00-0.50) K/uL Baso # (Auto) 0.04 (0.00-0.30) K/uL Abs Immat Gran (auto) 0.01 (0.00-0.30) K/uL Imm/Tot Granulo (auto) 0.1 % Sodium 137 (135-149) mmol/L Potassium 3.3 L (3.6-5.1) mmol/L Chloride 107 (96-114) mmol/L Carbon Dioxide 19 L (20-32) mmol/L Anion Gap 11 (7-15) mEq/L BUN 3 L (5-24) mg/dL Creatinine 0.5 L (0.6-1.2) mg/dL Estimated Creat Clear 169.42 Estimated GFR 138 ml/min Glucose 92 (60-115) mg/dL Calcium 9.3 (8.7-10.8) mg/dL Total Bilirubin 0.5 (0.1-1.5) mg/dL AST 15 (12-35) U/L ALT 13 (4-35) U/L Alkaline Phosphatase 79 (40-150) U/L Total Protein 7.0 (6.0-8.3) g/dL Albumin 4.2 (3.3-5.0) g/dL HCG, Qual Positive (Negative) HCG, Quant 3276.70 mIU/mL Lab Acknowledgement Test Added Imaging Data Pelvic ultrasound: Attestation: I have reviewed the pertinent imaging results. Radiologist's impression: 1. Distended endometrial stripe measuring up to 2.5 cm with areas of hyperemia and possibly cystic foci. Findings could represent retained products of conception. Recommend correlation with beta HCG. 2. Distended endometrial canal by large amount of simple fluid. 3. Enlarged uterus. Dictated by Akira Colon MD @ 04/20/2024 7:59:46 PM Discharge Plan Discharge Clinical Impression: Retained products of conception Patient Disposition: XFER to OR Condition: Stable Prescriptions: No Action No Known Home Medications Follow Up/Referrals: Provider,Not a Local [Primary Care Provider] -
[2024-04-20] MEDS: MORPHINE 4 MG/ML INJ IVP ×2 (18:25→19:02)
[2024-04-20 18:29] LABS: Basophils Absolute Auto 0.04 K/uL (0.00-0.30); Basophils Percent Auto 0.4 % (0.0-3.0); Eosinophils Absolute Auto 0.12 K/uL (0.00-0.50); Eosinophils Percent Auto 1.2 % (0.0-7.0); Hematocrit* 38.3 % (33.0-51.0); Hemoglobin* 12.6 gm/dL (12.0-16.0); Immature Granulocytes Abs Auto 0.01 K/uL (0.00-0.30); Immature Granulocytes Pct Auto 0.1 %; Lymphocytes Percent Auto 19.2 % (20-44); Mean Corpuscular HGB Conc 33 gm/dL (32-36); Mean Corpuscular Hemoglobin 27 pg (26-34); Mean Corpuscular Volume 81 fL (80-100); Monocytes Percent Auto 5.1 % (0.0-11.0); Platelet Count* 198 K/uL (140-440); RDW Coefficient of Variation % 15.7 % (11.5-15.5); Red Blood Count* 4.72 m/uL (4.00-5.20); White Blood Count* 10.04 K/uL (4.50-11.00)
[2024-04-20 18:34] LABS: Slide Review Reflex No
[2024-04-20 18:41] LABS: Albumin* 4.2 g/dL (3.3-5.0); Chloride* 107 mmol/L (96-114); Potassium* 3.3 mmol/L (3.6-5.1); Sodium* 137 mmol/L (135-149)
[2024-04-20 18:43] LABS: Bilirubin Total* 0.5 mg/dL (0.1-1.5); Creatinine* 0.5 mg/dL (0.6-1.2); Est. Creatinine Clearance* 169.42; Estimated Glomerular Filt Rate 138 ml/min
[2024-04-20 18:44] LABS: Alanine Aminotransferase* 13 U/L (4-35); Alkaline Phosphatase* 79 U/L (40-150); Anion Gap 11 mEq/L (7-15); Aspartate Amino Transferase* 15 U/L (12-35); Blood Urea Nitrogen* 3 mg/dL (5-24); Calcium* 9.3 mg/dL (8.7-10.8); Carbon Dioxide* 19 mmol/L (20-32); Glucose* 92 mg/dL (60-115)
[2024-04-20] MEDS: ONDANSETRON 2 MG/ML inj 4 MG IVP (18:53)
[2024-04-20] MEDS: LORazepam 0.5 MG TABLET PO (19:03)
[2024-04-20 19:20] LABS: HCG Qualitative Serum* Positive (Negative)
--- OUTSIDE RECORDS SUMMARY | 2024-04-20 20:00 | XMS_ITS | Patient Health Record ---
Author Organization [facility] Physician Sandy restrepo Billing Info Address [address] [place], [place] [address] Care Team Providers Care Supervisor Parking Lot Name Role Phone ELINA MIRZA Primary Care Provider Allergies No Known Allergies Reason For Referral No Information Plan Of Treatment No Information Insurance Providers Payer Name Payer Address Payer Phone Subscriber Number Group Number Insured Name Patient Relationship to Insured Coverage Start Date Coverage End Date [facility] [address] [place] [address] [id number] Karlene Gaviria Self - patient is the insured 2 2 Medical (General) History Surgical History Surgery Date(Month/Year)
--- OUTSIDE RECORDS SUMMARY | 2024-04-20 20:00 | XMS_ITS | Clinical Summary ---
Author Organization [facility] Address [place], [place] [address] Care Team Providers Care Hand Cloth Folder Name Role Phone Bryanna Gordon NP Primary [...] Department Care Team Description 04/19/2024 3:45 PM BLEACH PACKER Ancillary Procedure [facility] [address] [place] [address] Arrived 04/19/2024 3:20 PM BLEACH PACKER Office Visit [facility] [address] [place] [address] Patricia Llanes MD Wrist Injury (R wrist injury) 04/19/2024 Travel 04/19/2024 Nurse Triage [facility] [address] [place] [address] Bryanna Gordon NP Vaginal Bleeding 04/06/2024 Telephone [facility] [address] [place] [address] Yasmin Rodriguez MD Appointment (no showed appt for women's center ) 03/29/2024 2:40 PM BLEACH PACKER Telemedicine [facility] [address] [place] [address] Yasmin Rodriguez MD Care (MISCARRIAGE ) 03/29/[address] [place] [address] Yasmin Rodriguez MD Appointment 03/29/2024 Travel 03/28/[address] [place] [address] Linette Iglesias MD Appointment 03/22/2024 11:00 AM BLEACH PACKER Orders Only [address] [place] [address] Lab[facility] [place] [facility] 03/22/2024 Travel 03/18/[address] [address] Linette Iglesias MD Results; Appointment 03/18/2024 Travel 03/16/2024 10:30 AM BLEACH PACKER Orders Only [address] [place] [address] [facility] [place] [facility] 03/16/2024 9:45 AM BLEACH PACKER Ancillary Procedure [address] [address] 03/16/[address] [address] Linette Iglesias MD Imaging (Abnormal dating US, concern for early SAB) 03/16/2024 Travel 02/22/2024 1:00 PM BLEACH PACKER Phone OB Encounter [address] [address] Education (RN Ob Intake) 02/22/2024 Travel from [...] on file Legal Sex Female 7:19 AM BLEACH PACKER Gender Identity Not on file Sexual Orientation [...] 02/22/2024 - GA:6w3d 02/22/2024 - 6w3d - Syklar Bliss, [place] Virtual Visit: As the provider [...] telephone as well. Patient location (originating site [facility] [place], [place] Provider location (distant site city/state): [place], [place] Video/Phone start time (include am/pm designation): [...] of estimated date of delivery: No Thalassemia (Ivorian, Italian, Mediterranean, or background): MCV less than 80: No Neural tube defect (Meningomyelocele, Spina bifida, or Anencephaly): No Congenital heart defect: No Down syndrome: No Denis-Sachs (Ashkenazi Restorationist, Cajun, Chinese Redwood): No Magda disease (Ashkenazi Restorationist): No Familial dysautonomia (Ashkenazi Restorationist): No Sickle cell disease or trait (): [...] . - Provided online resources such as [facility] and [facility]elia. Discussed abcv-zmr-fquhjsw medications, and follow up. - Encouraged patient to call clinic at [phone] with any vaginal bleeding, fluid leaking from [...] Center 03/25/2024 12:40 PM Linette Iglesias MD [facility] Skylar Bliss RN .................... 02/22/2024 1:55 PM CH PACKER Last Filed Vital Signs Vital Sign Reading Time Taken Comments Blood Pressure 107/72 04/19/2024 3:33 PM BLEACH PACKER Pulse 110 04/19/2024 3:33 PM BLEACH PACKER Temperature 36.7 C (98.1 F) 04/03/2023 10:48 PM BLEACH PACKER Respiratory Rate 14 04/21/2023 2:26 PM BLEACH PACKER Oxygen Saturation 99% 04/19/2024 3:33 PM BLEACH PACKER Inhaled Oxygen Concentration - - Weight 65.6 kg (144 lb 9.6 oz) 04/19/2024 3:33 P M BLEACH PACKER Height 167.6 cm (5' 6) 04/21/2023 2:26 PM BLEACH PACKER Body Mass Index - - Plan of Treatment Upcoming Encounters Date Type Department Care Team (Late st Contact Info) Description 04/29/2024 10:50 AM BLEACH PACKER Office Visit [facility] [address] [place] [address] Nancy Vargas DO [address] [place] [address] Health Maintenance Due Date Last Done Comments [...] 3 VIEWS RIGHT Routine 04/19/2024 4:00 PM BLEACH PACKER Right wrist pain HCG BETA QUANT, STAT 03/22/2024 10:46 AM BLEACH PACKER Abnormal obstetric ultrasound scan 9 weeks gestation of US OB ANY TRI TV Routine 03/16/2024 10:5 8 AM BLEACH PACKER Encounter for supervision of other normal in first trimester HCG BETA QUANT, STAT 03/16/2024 10:26 AM BLEACH PACKER Abnormal obstetric ultrasound scan 9 weeks gestation of GC CHLAMYDIA TRACH PROBE Routine 04/21/2023 3:24 PM BLEACH PACKER Screening for STD (sexually transmitted disease) LC HIV-1/O/2, 4TH GENERATION Routine 04/11/2022 4:44 PM BLEACH PACKER Screening for HIV (human immunodeficiency virus) from Last 3 Months or Most Recently Relevant to Health Maintenance Results * XR WRIST 3 OR MORE VIEWS RIGHT (04/19/2024 4:00 PM BLEACH PACKER) Anatomical Region Laterality Modality WRISTS, WRIST R Computed Radiogr aphy 04/20/2024 7:14 AM BLEACH PACKER Narrative 04/20/2024 7:14 AM BLEACH PACKER For Patients: As a result of the [...] hCG Beta Quant, Serum (03/22/2024 10:46 AM BLEACH PACKER) Only the most recent of2 resultswithin the time period is included. HCG BETA QUANT,PREGNANC Y 138,064 mIU/mL 03/22/2024 2:52 PM BLEACH PACKER [facility] Blood BLOOD SPECIMEN / Unknown [facility] / Unknown 03/22/2024 10:46 AM BLEACH PACKER 03/22/2024 10:46 AM BLEACH PACKER Narrative [facility] - 03/22/2024 2:52 PM BLEACH PACKER Expected Value for Healthy Non- premenopausal women [...] Linette Iglesias MD CHEMISTRY Final Resul t [facility] [address] [place] [address], [place] * US OB ANY TRI TV (03/16/2024 10:58 AM BLEACH PACKER) Anatomical Region Laterality Modality , 2or 3 TRIMESTER, 1ST TRIMESTER Ultrasound 03/16/2024 3:51 PM BLEACH PACKER Impressions 03/16/2024 3:51 PM BLEACH PACKER Nonviable gestation. Dictated by Thuan Menjivar MD @ 03/16/2024 3:51:55 PM (Electronically Signed) Narrative 03/16/2024 3:51 PM BLEACH PACKER For Patients: As a result of the [...] Resul t * GC CHLAMYDIA TRACH PROBE [[id number]] - urine (04/21/2023 3:24 PM BLEACH PACKER) CHLAMYDIA PROBE Negative 8:23 PM BLEACH PACKER [facility] TRAL LABORATORY N GONORRHOEAE PROBE Negative 04/22/2023 8:23 PM BLEACH PACKER [facility] TRAL LABORATORY Other URINE SPECIMEN / Unknown Non-Blood / Unknown 04/21/2023 3:24 PM BLEACH PACKER 04/21/2023 3:24 PM BLEACH PACKER Bryanna Gordon NP MICROBIOLOGY Final Result [facility] [address] [place] [address], * HIV-1/O/2, 4TH GENERATION (04/11/2022 4:44 PM BLEACH PACKER) HIV Scr 4th Gen Non Reactive Non Reactive 04/16/2022 10:10 AM BLEACH PACKER [facility] Comment: HIV Negative HIV-1/HIV-2 antibodies and HIV-1 p24 antigen were NOT detected. There is no laboratory evidence of HIV infection. Blood BLOOD SPECIMEN / Unknown Venipuncture / Unknown 04/11/2022 4:44 PM BLEACH PACKER 04/11/2022 4:46 PM BLEACH PACKER Narrative [facility] ([facility]) - 04/16/2022 10:10 AM BLEACH PACKER Performed at: [address] [place] [address] [place] [address], [place] [id number] Brain Surgeon: Joe Cooper MD, Phone: [phone] us Bryanna Gordon NP LABORATORY Final Result [facility] ([facility]) [address] [place] [address], [place] from Last 3 Months or Most Recently Relevant to Health Maintenance Insurance [facility] [address] [place] [address] * Guarantor: Laquita Acosta Account Type Relation to Patient Date of Phone Billing Address Personal/Family Loading Dock Hand 1992 [address] [place] [address] MEDICAID Care Teams Hand Cloth Folder Relationship Specialty Start Date End Date Bryanna Gordon NP [address] [place] [address] PCP - General Nurse Practitioner - Family 12/05/21
--- OUTSIDE RECORDS SUMMARY | 2024-04-20 20:00 | XMS_ITS | Continuity of Care Document ---
Author Organization [facility] Address [address] [place] [phone] Phone Care Team Providers Care Mc Kay Machine Operator Name Role Phone Unavailable Unavailable Unavailable Allergies, Adverse Reactions, Alerts Substance Reaction Status Criticality No Known Allergies Active No Inform ation Procedures Procedure Date OFFICE/OUTPATIENT VISIT, [facility] Advance Directives Directive Yes / No Effective Date File Name No Information Encounters Encounter Description Practice Location Reason(s) For Visit Diagnoses Date Provider Providers Copied on Encounter OFFICE/OUTPA TIENT VISIT, [facility], [address] [place] [address], [id number] , [place] tel:[phone] [facility] Dizziness (chief complaint) Contracept ion (chief complaint) Body mass index (BMI) 19 or less, adultDizzinessEnco unter for education about contraceptive use No Information Family History Family Member Type Diagnosis Age At Onset No Information Payers Payer name Insurance type Covered republican ID Carlitosa raegan(s) [facility] [id number] Social History Type Description Quantity Date Captured [...] Mental Status Date Cognitive Assessment Orientation - [place] ed to time, place, person, situation. Patient Care Teams Name Effective Dates (start - stop) Status Members No Information
--- NOTE | 2024-04-20 20:56 | P.GYNCN_ITS ---
DEVELOPMENT PROFESSIONAL - CN: HPI Data of Consult Time Seen by Provider: 20:20 Date Seen: 04/20/24 Patient: [facility] Patient Consult date: 04/20/24 Requesting Physician: Dr. Chase Primary Care Provider: Not a Local Provider Family Provider: Linette Iglesias MD Consult Narrative Reason for consult: vaginal bleeding (Retained products of conception following miscarriage) Narrative: Karlene Gaviria is a 18 year old female, 3 para 1011 who presented to the emergency room this evening complaining of severe low abdominal cramping and vaginal bleeding. The patient tells me that her last menstrual period began on 01/08/2024. She was seen in the emergency department on 02/26/2024 for spotting in early . At that time, she was found to be Rh positive. An ultrasound showed an intrauterine gestational sac containing a pole with a crown-rump length consistent with 5 weeks 6 days. There was no evidence of heart motion. She was instructed to follow up with her primary provider. She was then seen at the [facility] for a first-trimester ultrasound on 03/16/2024. The ultrasound showed an irregular intrauterine gestational sac without evidence of a pole, as well as an enlarged yolk sac, suggestive of early loss at 9 weeks 5 days. [facility]-up evaluation and consideration D&C, but was unable to come to either of the two appointment scheduled on April 01 or April 15 due to lack of transportation. She had quantitative HCG levels done: 119,470 (02/25), 198,645 (03/16), 138,064 (03/22). The patient tells me that she had intermittent spotting throughout February and early March. On Thursday, the bleeding became a little heavier. Yesterday she started bleeding even more heavily with passage of clots. The heavier bleeding continued, and she states that she has saturated five maxi pads today. She also has been experiencing severe low abdominal cramping in the midline since this morning. She denies fevers or chills, nausea or vomiting. She has not had much to eat or drink today, denies having had any meals. She cannot say when she last ingested any food or liquid. OBSTETRIC HISTORY: Uncomplicated vaginal delivery three years ago. Early spontaneous miscarriage in October 2023 following a positive home test. Current . PMSH: Patient denies significant medical history. She has never had surgery. cc:: CC: [facility] Social History Smoking Status: Never smoker Do you use any of these nicotine containing products: None and Vaping Products How often do you have a drink containing alcohol: never How often do you have six or more drinks on one occasion: Never AUDIT-C Alcohol total score: 0 Non-prescribed substance use: denies use Meds Home Medications and Allergies Home Medications ?Medication ?Instructions ?Recorded ?Confirmed ?Type No Known Home Medications 10/10/23 04/20/24 History Allergies Allergy/AdvReac Type Severity Reaction Status Date / Time No Known Drug Allergies Allergy Verified 04/20/24 17:57 DEVELOPMENT PROFESSIONAL - Exam Physical Exam: Vital signs: Temp Pulse Resp BP Pulse Ox O2 Del Method 98.2 F 74 18 102/64 95 Room Air 04/20/24 17:48 04/20/24 19:15 04/20/24 17:48 04/20/24 17:48 04/20/24 19:15 04/20/24 17:48 Constitutional: Constitutional: mild distress (Due to pain) Routine HEENT Exam: Head: Present normal inspection Routine Respiratory Exam: Comments: Normal respiratory effort. Routine Abdominal Exam: Abdominal: Present soft and tenderness; Absent guarding Routine Exam: Comments: Lymphedema Therapist exam deferred to OR. DEVELOPMENT PROFESSIONAL - Results Labs Labs: Short CBC 04/20/24 Range/Units 18:23 WBC 10.04 (4.50-11.00) K/uL Hgb 12.6 (12.0-16.0) gm/dL Hct 38.3 (33.0-51.0) % Plt Count 198 (140-440) K/uL BMP 04/20/24 18:23 Sodium 137 Potassium 3.3 L Chloride 107 Carbon Dioxide 19 L BUN 3 L Creatinine 0.5 L Glucose 92 Calcium 9.3 Liver Function 04/20/24 Range/Units 18:23 Total Bilirubin 0.5 (0.1-1.5) mg/dL AST 15 (12-35) U/L ALT 13 (4-35) U/L Alkaline Phosphatase 79 (40-150) U/L Albumin 4.2 (3.3-5.0) g/dL Imaging US - pelvis: Attestation: I have reviewed the pertinent imaging results. My impression: Large amount of fluid within the endometrial canal, possibly due to enlarged gestational sac, with peripheral blood flow. Findings suspicious for retained products of conception. Radiologist's impression: 1. Distended endometrial stripe measuring up to 2.5 cm with areas of hyperemia and possibly cystic foci. Findings could represent retained products of conception. Recommend correlation with beta HCG. 2. Distended endometrial canal by large amount of simple fluid. 3. Enlarged uterus. Assessment and Plan Assessment and plan (1) Retained products of conception: Status: Acute Plan The patient and I discussed her ultrasound findings. I suspect retained products of conception from the recent nonviable . I would recommend proceeding with urgent dilation and curettage tonight under monitored anesthesia care and a paracervical block. We discussed the procedure, and informed consent was obtained for the procedure. The operating room and anesthesia staff were notified. I will plan to do an examination under anesthesia before the prep, and obtain a cervical cultures. Will administer Ancef 2 g IV preoperatively. The patient and I discussed the anticipated postoperative course and pain management following surgery. The products of conception will be sent for pathologic review to rule out gestational trophoblastic disease. She was encouraged to [facility]-2 weeks for postope rative evaluation, and to return for worrisome signs or symptoms such as continued heavy bleeding or signs or symptoms of infection. Total Time Spent Total Time Spent: 50 minutes.
--- NOTE | 2024-04-20 21:18 | W.PM.GYNPROC ---
Procedure Note Date of procedure: 04/20/24 Will [facility] bill your pro fee for this procedure?: Yes Pre-op diagnosis: Retained products of conception following miscarriage. Post-op diagnosis: Retained products of conception following miscarriage. Procedure: Examination under anesthesia. Suction curettage. Anesthesia: MAC and local (Paracervical block) Complications: None. Surgeon: Liliana Archibald MD Estimated blood loss (mL): 550 Pathology: specimen obtained, sent to pathology (Products of conception) Condition: stable Disposition: PACU Findings: Large amount of blood and tissue within the uterus. Procedure Description: After obtaining informed consent, the patient was taken to the operating room where general anesthesia was obtained without difficulty. 2 g of IV Ancef was administered intravenously. An examination was performed under anesthesia which demonstrated an enlarged uterus. An open-sided bivalve speculum was placed into the vagina and the cervix easily visualized. A large amount of blood and clot was in the vaginal vault. Cervical cultures, aerobic and anaerobic, were obtained. The speculum was removed. She was prepared and draped in the normal, sterile fashion in the dorsal lithotomy position. A new sterile speculum was inserted into the vagina and the cervix again visualized. The anterior lip of the cervix was grasped with a single-tooth tenaculum for traction. A sound was gently inserted through the cervical os into the uterus to the level of the fundus. Sound length was 11.5 cm. The cervix was passively dilated using Hegar dilators to a #12 dilator. A 12 mm rigid, curved suction cannula was advanced through the cervical os into the uterine cavity. Gentle suction was applied, and the uterine lining gently curetted. A large amount of products of conception and blood was removed. The suction cannula was passed into the uterus multiple times, and additional blood, clots and tissue were removed. The suction cannula was removed. The uterine lining was gently explored using a sharp curette, and a gritty feel was felt throughout. There was continued mild oozing noted. Vigorous bimanual massage was performed. Methergine 0.2 mg IM was administered, as well as misoprostol 800 mcg per rectum and Hemabate 250 mcg IM. I performed a limited transabdominal ultrasound at the bedside and observed that there was no evidence of retained tissue at the fundus or mid uterus, but there was some clot or tissue within the lower uterine segment. Under ultrasound guidance, I was able to pass a curette into this area and remove the clot/tissue. Bleeding was observed to slow significantly. All instruments were then removed. The patient tolerated the procedure well. Sponge, lap, and needle counts were reported as correct x2. The patient was taken to the recovery room awake and in stable condition.
[2024-04-20] MEDS: LACTATED RINGERS 500 ML 500 ML 125 ML IV ×2 (21:25→22:07)
[2024-04-20] MEDS: CEFAZOLIN 2 GM INJ IVP (21:38)
[2024-04-20] MEDS: miSOPROStoL 800 MCG/4 TABLET PR (21:55)
--- NOTE | 2024-04-20 22:36 | P.ANES_ITS ---
Anesthesia Charges Start Date/Time Anesthesia Start Date: 04/20/24 Anesthesia Start Time: 21:05 Stop Date/Time Anesthesia Stop Date: 04/20/24 Anesthesia Stop Time: 22:35 Summary Emergency: WRAPPER OPERATOR Coding CPT Codes CPT Codes: ANESTH VAGINAL PROCEDURES - 28757 ([id number]) P1 - NORMAL HEALTHY PATIENT, QZ - WRAPPER OPERATOR SVC W/O RN PLASMA CENTER BY Additional Codes: Summary - Emergency: WRAPPER OPERATOR ([id number])
--- NOTE | 2024-04-20 22:36 | W.ANESCHARGE ---
Anesthesia Charges Start Date/Time Anesthesia Start Date: 04/20/24 Anesthesia Start Time: 21:05 Stop Date/Time Anesthesia Stop Date: 04/20/24 Anesthesia Stop Time: 22:35 Summary Emergency: REPAIR SPECIALIST Coding CPT Codes CPT Codes: ANESTH VAGINAL PROCEDURES - 21507 ([id number]) P1 - NORMAL HEALTHY PATIENT, QZ - REPAIR SPECIALIST SVC W/O ELECTRONIC SYSTEMS SECURITY ASSESSMENT BY Additional Codes: Summary - Emergency: REPAIR SPECIALIST ([id number])
[2024-04-21] VITALS (14 sets, daily range): BP systolic 72–106; BP diastolic 30–68; PULSE 65–100; RESP 14–16; TEMP 36.5–37.1; O2SAT 97–100
[2024-04-21] MEDS: LACTATED RINGERS 1000 ML 1,000 ML 125 ML IV (01:45)
[2024-04-21] MEDS: ACETAMINOPHEN 500 MG TABLET 1000 MG PO (03:24)
[2024-04-21] MEDS: KETOROLAC 30 MG/ML inj IVP (05:48)
[2024-04-21] MEDS: LACTATED RINGERS 500 ML 500 ML IV (05:53)
[2024-04-21 06:54] LABS: Basophils Absolute Auto 0.04 K/uL (0.00-0.30); Basophils Percent Auto 0.5 % (0.0-3.0); Hematocrit* 28.3 % (33.0-51.0); Hemoglobin* 9.3 gm/dL (12.0-16.0); Immature Granulocytes Abs Auto 0.02 K/uL (0.00-0.30); Immature Granulocytes Pct Auto 0.2 %; Lymphocytes Percent Auto 9.9 % (20-44); Mean Corpuscular HGB Conc 33 gm/dL (32-36); Mean Corpuscular Hemoglobin 27 pg (26-34); Mean Corpuscular Volume 83 fL (80-100); Monocytes Percent Auto 1.8 % (0.0-11.0); Neutrophils Percent Auto 87.6 % (42.0-72.0); Platelet Count* 154 K/uL (140-440); RDW Coefficient of Variation % 15.7 % (11.5-15.5); Red Blood Count* 3.43 m/uL (4.00-5.20); White Blood Count* 8.11 K/uL (4.50-11.00)
--- NOTE | 2024-04-21 07:06 | PC.NURSE ---
The patient arrived to the unit pleasant and cooperative with cares. reports minimal abdominal discomfort upon assessment. IV patent. Post op routine was completed, BP was noted to be quite hypotensive, although no symptoms. MD was called 2x due to this... 500 cc bolus infusing. Small amount of bleeding, we are to weigh her pads. S/O asleep in recliner at bedside. Would like to discharge home today. Mikaela WOOD BSN
[2024-04-21 07:07] LABS: Slide Review Reflex No
[2024-04-21 09:34] LABS: Basophils Absolute Auto 0.02 K/uL (0.00-0.30); Basophils Percent Auto 0.2 % (0.0-3.0); Hematocrit* 30.6 % (33.0-51.0); Hemoglobin* 10.1 gm/dL (12.0-16.0); Immature Granulocytes Abs Auto 0.02 K/uL (0.00-0.30); Immature Granulocytes Pct Auto 0.2 %; Lymphocytes Percent Auto 12.9 % (20-44); Mean Corpuscular HGB Conc 33 gm/dL (32-36); Mean Corpuscular Hemoglobin 27 pg (26-34); Mean Corpuscular Volume 82 fL (80-100); Neutrophils Percent Auto 82.7 % (42.0-72.0); Platelet Count* 199 K/uL (140-440); RDW Coefficient of Variation % 15.7 % (11.5-15.5); Red Blood Count* 3.73 m/uL (4.00-5.20); White Blood Count* 9.09 K/uL (4.50-11.00)
[2024-04-21 09:43] LABS: Slide Review Reflex No
[2024-04-21 10:15] LABS: INR 1.12 (0.91-1.10); Partial Thromboplastin Time* 28 Seconds (23-33); Prothrombin Time 15.2 Seconds
[2024-04-21 10:16] LABS: Fibrinogen* 296 mg/dL (200-450)
--- NOTE | 2024-04-21 11:38 | P.DS_ITS ---
DS: Providers Provider Date Seen: 04/21/24 Date of admission: 01/18/25 Primary care physician: Not a Local Provider Admitting Clinician: Liliana Archibald MD Attending Physician on discharge: Dacia Avelar MD Date of Discharge: 04/21/24 DS: Diagnosis Discharge Diagnosis (1) S/P D&C (status post dilation and curettage): Status: Acute (2) Retained products of conception: Status: Acute PHARMACOEPIDEMIOLOGIST-Discharge Summary Hospital Course Hospital Course Narrative: Patient is a 18 year old admitted on 04/20/2024 for heavy bleeding in the setting of incomplete spontaneous . She had an emergent suction uterine curettage for this indication Intraoperative findings were notable for abundant blood and tissue in the uterus. She had an EBL of 550 mL, and was treated with rectal misoprostol, IM Methergine and Hemabate. Otherwise, she had an uncomplicated surgery. Postoperative course has been notable for hypertension with normal heart rate. Urine output was not tracked during much of her observation, but she had had adequate urine output since initiation of monitoring. Orthostatic BPs are normal. Today, on postoperative day 1, she reports the pain is well controlled. She has been able to ambulate Without difficulty. She is tolerating regular diet. She denies any heavy bleeding. She specifically denies any lightheadedness with activity. Time Spent with Patient Time attestation: Total time spent providing and/or coordinating discharge services: PHARMACOEPIDEMIOLOGIST - Exam Physical Exam: Vital signs: Temp Pulse Resp BP Pulse Ox O2 Del Method 98.6 F 78 16 83/56 L 98 Room Air 04/21/24 08:30 04/21/24 11:00 04/21/24 11:00 04/21/24 11:00 04/21/24 11:00 04/21/24 11:00 Narrative: General: Pleasant, no acute distress Heart: Regular rate and rhythm, no murmur or gallop Lungs: Clear to auscultation bilaterally Abdomen: Soft, nontender, fundus well below umbilicus Lower extremities: No edema or erythema PHARMACOEPIDEMIOLOGIST - DS: Data Data Completed and Pending Labs on day of discharge: Labs from last 24 hours 04/21/24 04/21/24 04/20/24 09:24 06:15 19:41 WBC 9.09 8.11 RBC 3.73 L 3.43 L Hgb 10.1 L 9.3 L Hct 30.6 L 28.3 L MCV 82 83 MCH 27 27 MCHC 33 33 RDW Coeff of Parish 15.7 H 15.7 H Plt Count 199 154 Neut % (Auto) 82.7 H 87.6 H Lymph % (Auto) 12.9 L 9.9 L Ceiba % (Auto) 4.0 1.8 Eos % (Auto) 0.0 0.0 Baso % (Auto) 0.2 0.5 Neut # (Auto) 7.50 H 7.10 H Lymph # (Auto) 1.20 0.80 L Ceiba # (Auto) 0.40 0.10 Eos # (Auto) 0.00 0.00 Baso # (Auto) 0.02 0.04 Abs Immat Gran (auto) 0.02 0.02 Imm/Tot Granulo (auto) 0.2 0.2 INR 1.12 H APTT 28 Fibrinogen 296 Sodium Potassium Chloride Carbon Dioxide Anion Gap BUN Creatinine Estimated Creat Clear Estimated GFR Glucose Calcium Total Bilirubin AST ALT Alkaline Phosphatase Total Protein Albumin HCG, Qual HCG, Quant Lab Acknowledgement Test Added Blood Type B Positive Antibody Screen NEGATIVE Crossmatch ([facility]) See Detail 04/20/24 18:23 WBC 10.04 RBC 4.72 Hgb 12.6 Hct 38.3 MCV 81 MCH 27 MCHC 33 RDW Coeff of Parish 15.7 H Plt Count 198 Neut % (Auto) 74.0 H Lymph % (Auto) 19.2 L Ceiba % (Auto) 5.1 Eos % (Auto) 1.2 Baso % (Auto) 0.4 Neut # (Auto) 7.40 H Lymph # (Auto) 1.90 Ceiba # (Auto) 0.50 Eos # (Auto) 0.12 Baso # (Auto) 0.04 Abs Immat Gran (auto) 0.01 Imm/Tot Granulo (auto) 0.1 INR APTT Fibrinogen Sodium 137 Potassium 3.3 L Chloride 107 Carbon Dioxide 19 L Anion Gap 11 BUN 3 L Creatinine 0.5 L Estimated Creat Clear 169.42 Estimated GFR 138 Glucose 92 Calcium 9.3 Total Bilirubin 0.5 AST 15 ALT 13 Alkaline Phosphatase 79 Total Protein 7.0 Albumin 4.2 HCG, Qual Positive HCG, Quant 3276.70 Lab Acknowledgement Blood Type Antibody Screen Crossmatch ([facility]) Preliminary micro results at discharge 04/20/24 22:03 Anaerobic Culture - Preliminary Uterus Culture in Progress Procedures Procedures: Procedures Operation Date: 04/20/24 21:55 Actual Procedure Side Surgeon p Exam Under Examination; Suction and Curettage Liliana Archibald MD Complications: intraoperative hemorrhage Discharge Plan Discharge Disposition: Home w/ Parent or Adult Discharging Surgeon: Dacia Avelar Follow-Up Appointment: [address] Archibald; patient wishes to discuss contraception Prescriptions: New ferrous sulfate 325 mg (65 mg iron) tablet 325 mg PO Q OTHER DAY Qty: 20 0RF Activity Detail: Nothing per vagina until bleeding stops. Discharge Diet: Regular Patient Instructions: Dilation and Curettage (DC) Follow-up: Provider,Not a Local [Primary Care Provider] - Liliana Archibald MD [Staff Physician] - Discharge Orders: Discharge Order (Routine); Ordered 04/21/24 Ordered By: Dacia Avelar
--- NOTE | 2024-04-21 14:29 | PC.NURSE ---
Nursing Care Hours: 7014-2140 Pt this shift calm and cooperative, alert and oriented. No c/o pain. Hypotensive without symptoms. Orthostatics done and reported to OB MD. Pt ambulating without symptoms. Pale skin. Pulse WNL. No blood output on pad or in toilet. U/O clear pale yellow. Eating and drinking sufficiently. IV saline locked. DC instructions include monitoring SS of hypotension, taking iron supplement with a vit c source. IV removed, pt ambulated to SO vehicle with SB assist from typewriter assembly and parts inspector. Left in stable condition.
== END 2024-04-21 13:20 | disposition home or self-care (01) ==
LOC: ED 21:08 → SS 21:54 → MEDSURG 23:21
PROVIDERS: Obstetrics & Gynecology; Emergency Provider Student in an Organized Health Care Education/Training Program; Visit Provider Obstetrics & Gynecology
PROC: (CPT 59812; principal; 2024-04-20 21:45)
DX: O03.1 Delayed or excessive hemorrhage following incomplete spontaneous abortion (principal)
CPT/HCPCS: 59812; 00940; 36415; 76856; 76998; 80053; 84702; 84703; 85018; 85025; 85384; 85610; 85730; 86850; 86900; 86901; 86922; 87070; 87075; 87186; 87205; 88305; 99140; 99285; A9270; J0330; J0690; J1100; J1630; J1885; J2210; J2270; J2405; J2704; J3010; J7120

== ENCOUNTER 2024-07-23 02:20 | Outpatient (CLI) | payer MEDICAID, SELFPAY | END 2024-07-23 02:21 | disposition home or self-care (01) | LOC: AMB 07-25 09:54 | PROVIDERS: Visit Provider Family Medicine | DX: S69.91XA Unspecified injury of right wrist, hand and finger(s), initial encounter (principal); X83.8XXA Intentional self-harm by other specified means, initial encounter; Y93.89 Activity, other specified; Y92.039 Unspecified place in apartment as the place of occurrence of the external cause | CPT/HCPCS: A0425; A0429 ==

== ENCOUNTER 2024-07-23 02:52 | Emergency (ER) | payer MEDICAID, SELFPAY ==
--- OUTSIDE RECORDS SUMMARY | 2024-07-23 02:56 | XMS_ITS | Patient Health Record ---
Author Organization [facility] Physician Sandy restrepo Billing Info Address [address] [place], [place] [id number] Care Team Providers Care Pets Salesperson Name Role Phone ELINA MIRZA Primary Care Provider Allergies No Known Allergies Reason For Referral No Information Plan Of Treatment No Information Insurance Providers Payer Name Payer Address Payer Phone Subscriber Number Group Number Insured Name Patient Relationship to Insured Coverage Start Date Coverage End Date [facility] [address] [place] [address] [id number] Karlene Gaviria Self - patient is the insured 2 2 Medical (General) History Surgical History Surgery Date(Month/Year)
--- OUTSIDE RECORDS SUMMARY | 2024-07-23 02:56 | XMS_ITS | Clinical Summary ---
Author Organization [email or web address] Address [address] [place] [id number] Care Team Providers Care Venetian Blind Worker Name Role Phone Bryanna Gordon NP Primary Care Provider [phone] Allergies No known active allergies Medications FLUoxetine 20 mg capsuleIndications :Depression, recurrent,Anxiety Take 1 Capsule (20 mg) by mouth once daily in the morning. 93 Capsule 3 5 Active hydrOXYzine HCL 25 mg tabletIndications: Anxiety Take 1 Tablet (25 mg) by mouth every 6 hours if needed for Anxiety. 25 Tablet 1 5 Active FLUoxetine 10 mg capsuleIndications :Depression, recurrent,Anxiety Take 1 Capsule (10 mg) by mouth once daily in the morning. Take together with 20 mg capsule for total of 30 mg daily. 93 Capsule 3 5 Active FLUoxetine (PROZAC) 20 mg capsuleIndications :Depression, recurrent,Anxiety Take 1 Capsule (20 mg) by mouth once daily in the morning. 60 Capsule 5 025 Discontin ued(Reord er (E-cancel not sent)) hydrOXYzine HCL (ATARAX) 25 mg tabletIndications: Anxiety Take 1 Tablet (25 mg) by mouth every 6 hours if needed for Anxiety. 25 Tablet 1 5 025 Discontin ued(Reord er (E-cancel not sent)) norethindrone-eth estradiol, 1-35 mg-mcg, (ORTHO-NOVUM ; NORTREL ) 1-35 mg-mcg tabletIndications: Encounter for prescription of oral contraceptives Take 1 Tablet by mouth once daily. 90 Tablet 3 5 025 Discontin ued(*Med complete/ Regimen complete/ Level of care change) Hospital, Clinic, or Other Facility Administered Medication Ordered Dose Route Frequency Start Date End Date Status medroxyPROGESTERone acetate (contraceptive) (DEPO-PROVERA) injection 150 mgIndications:Evaluat ion regarding contraception options 150 mg IM Q 3 MONTHS (12 WEEKS) 06/25/2024 05/27/2025 Active Active Problems Problem Noted Date Diagnosed Date PTSD (post-traumatic stress disorder) 11/04/2021 Depression, recurrent 11/04/2021 Anxiety 11/04/2021 Resolved Problems Problem Noted Date Diagnosed Date Resolved Date Less than 8 weeks gestation of 02/22/2024 05/27/2024 Overview (02/22/2024): Estimated Date of Delivery: 10/14/24 [...] episode. Skylar Bliss RN ....02/22/2024 2:18 PM 03/26/2020 05/27/2024 Overview (09/05/2020): Estimated Date of Delivery: 11/07/20 [...] this episode. Sabiha Guzman RN.....03/26/2020 9:29 AM Encounters Date Type Department Care Team Description 06/27/2024 Refill [facility] [address] [facility] [place] [address] Nancy Vargas, Refill Request (Fluoxetine) 06/24/2024 12:40 PM CDT Office Visit [facility] [address] [place] [address] Linette Iglesias MD Well Child (18 year old) 06/24/2024 Telephone [facility] [address] [facility] [address] [place] [address] Bryanna Gordon NP Contraception 06/24/2024 Travel 05/31/2024 Travel 05/27/2024 10:40 AM FLORAL DESIGN TEACHER Office Visit [facility] [address] [place] [address] Karen Del Valle MD Confirmation (Had 4 positive tests at home. ) 05/27/2024 Travel 04/29/2024 10:50 AM FLORAL DESIGN TEACHER Office Visit [facility] [address] [place] [address] Nancy Vargas DO Vaginal Bleeding (D & C follow up 04/20/24/Small spotting); Medication Management (Looking to get back on anti-depressant ) 04/29/2024 Travel from Last 3 Months Immunizations Immunization Administration Dates Next Due HPV 9 (Gardasil [...] Yes Smokeless Tobacco: Never Tobacco Cessation:Counseling Given: No Comments:grandma and mom smokes Alcohol Use Standard Drinks/Week Comments Not Currently 0 (1 standard drink = 0.6 oz pur e alcohol) PHQ-2 Answer Date Recorded PHQ-2 TOTAL SCORE 2 06/24/2024 Social Connections Answer Date Recorded Do you [...] example, heat, electricity, water, phone)? 1 11/24/2023 Comments No Sex and Gender Information Value Date Recorded Sex Assigned at Not on file Legal Sex Female 7:19 AM FLORAL DESIGN TEACHER Gender Identity Not on file Sexual Orientation Not on file Obstetrics History Para Term AB IAB SAB Ectopic Multiple Livin g Live Births 3 1 1 1 1 1 1 Date Outcome GA Total Labor Labor/2nd/3rd Weight Sex Type Anes PTL Stephan A1 A5 Name Clin 2020 Term 40w 4d 3.23 kg (7 lb 2 oz) F Vag Livin g Morena Complications:None Delivery Location:Hospital 2024 SAB SPONTA NEOUS Comments:patient had D &C done at [facility] Summary Episode Dates Number of Fetuses Estimated Date of Delivery 02/22/2024 - Present (07/23/2024) 10/14/2024 (set by Skylar Bliss, RN on [...] telephone as well. Patient location (originating site city/formerly [facility]): [place], [place] Provider location (distant site city/state): [place], [place] Video/Phone start time (include am/pm designation): [...] of estimated date of delivery: No Thalassemia (Amharic, Uzbek, Mediterranean, or background): MCV less than 80: No Neural tube defect (Meningomyelocele, Spina bifida, or Anencephaly): No Congenital heart defect: No Down syndrome: No Denis-Sachs (Ashkenazi Baptism, Cajun, Kiswahili [place]): No Magda disease (Ashkenazi Baptism): No Familial dysautonomia (Ashkenazi Baptism): No Sickle cell disease or trait (): No Hemophilia or other blood disorders: No Muscular dystrophy: No Cystic fibrosis: No Pecos's chorea: No Intellectual disability and/or autism: No [...] . - Provided online resources such as [facility] and [employer] [place]. Discussed [id number] medications, and follow up. - Encouraged patient to call clinic at [phone] with any vaginal bleeding, fluid leaking from [...] Center 03/25/2024 12:40 PM [facility] Skylar Bliss RN .................... 02/22/2024 1:55 PM AL DESIGN TEACHER Last Filed Vital Signs Vital Sign Reading Time Taken Comments Blood Pressure 101/68 06/24/2024 12:50 PM CDT Pulse 103 06/24/2024 12:50 PM CDT Temperature 36.7 C (98.1 F) 06/24/2024 12:50 PM CDT Respiratory Rate 14 04/21/2023 2:26 PM FLORAL DESIGN TEACHER Oxygen Saturation 98% 06/24/2024 12:50 PM CDT Inhaled Oxygen Concentration - - Weight 63.1 kg (139 lb 3.2 oz) 06/24/2024 12:50 PM CDT Height 168 cm (5' 6.14) 06/24/2024 12:50 PM CDT Body Mass Index 22.37 06/24/2024 12:50 PM CDT Plan of Treatment Health Maintenance Due Date Last Done Comments Hepatitis C screening for age 18-79 2022 COVID-19 vaccine series (2023- season) 2023 Influenza Vaccine (Season Ended) 2024 Chlamydia for age 16-24 05/27/2025 05/27/19 25, 04/21/2023, 04/20/2020, Additional history exists BMI (ht and wt on same day) for age 18+ 06/24/2025 06/24/2024, 05/27/2024, 04/21/2023 Well Child Check for age 3-20 06/24/2025 06/24/2024, 04/21/2023, 04/11/2022 Depression screening for age 12+ 06/27/2025 06/27/2024, 06/24/2024, 04/29/2024, Additional history exists Tetanus booster 04/11/2032 04/11/2022 HIV for age 15-65 Completed 04/11/2022, 03/03/2020 Meningococcal series for age 11-21 Completed 04/11/2022 Tdap Completed 04/11/2022 HPV series for age 9-26 Completed 04/21/19 24, 04/11/2022, 12/03/2021 Pneumococcal series for age 6-49 Aged Out No longer eligible based on patient's age to complete this topic Procedures Procedure Name Priority Date/Time Associated Diagnosis Comments URINE POCT Routine 06/24/2024 1:11 PM CDT Evaluation regarding contraception options ,SERUM QUALITATIVE Routine 05/27/2024 11:12 AM FLORAL DESIGN TEACHER Positive urine test (HC) URINE POCT Routine 05/27/2024 10:54 AM FLORAL DESIGN TEACHER Positive urine test (HC) GC CHLAMYDIA TRACH PROBE Routine 05/27/2024 10:54 AM FLORAL DESIGN TEACHER Screening examination for STI LC HIV-1/O/2, 4TH GENERATION Routine 04/11/2022 4:44 PM FLORAL DESIGN TEACHER Screening for HIV (human immunodeficiency virus) from Last 3 Months or Most Recently Relevant to Health Maintenance Results * POCT Urine (06/24/2024 1:11 PM CDT) Only the most recent of2 resultswithin the time period is included. POC HCG URINE NEGATIVE NEGATIVE [facility] Urine URINE SPECIMEN / Unknown 06/24/2024 1:11 PM CDT 06/24/2024 1:12 PM CDT Linette Iglesias MD URINE Final Resul t [facility] [address] [place] [address], [facility] [address] [place] [address] * ,SERUM QUALITATIVE (05/27/2024 11:12 AM FLORAL DESIGN TEACHER) HCG, TOTAL, QL NEGATIVE See Note: [facility] Comment: Reference Range: Reference Range Non-: Negative : Positive Blood BLOOD SPECIMEN / Unknown 05/27/2024 11:12 AM FLORAL DESIGN TEACHER 05/27/2024 11:12 AM FLORAL DESIGN TEACHER Karen Del Valle MD CHEMISTRY Fin al Result [facility] [address] [place] [address], [place] [phone] [facility] [address] [facility] [place] [address] * GC & CHLAMYDIA DNA PCR [[id number]] (05/27/2024 10:54 AM FLORAL DESIGN TEACHER) CHLAMYDIA PROBE Negative 8:18 PM FLORAL DESIGN TEACHER [facility] N GONORRHOEAE PROBE Negative 05/27/2024 8:18 PM FLORAL DESIGN TEACHER [facility] Other URINE SPECIMEN / Unknown Non-Blood / Unknown 05/27/2024 10:54 AM FLORAL DESIGN TEACHER 05/27/2024 10:54 AM FLORAL DESIGN TEACHER Karen Del Valle MD MICROBIOLOGY Fin al Result [facility] [address] [place] [address], * LC HIV-1/O/2, 4TH GENERATION (04/11/2022 4:44 PM FLORAL DESIGN TEACHER) [facility] HIV Scr 4th Gen Non Reactive Non Reactive 04/16/2022 10:10 AM FLORAL DESIGN TEACHER [facility] Comment: HIV Negative HIV-1/HIV-2 antibodies and HIV-1 p24 antigen were NOT detected. There is no laboratory evidence of HIV infection. Blood BLOOD SPECIMEN / Unknown Venipuncture / Unknown 04/11/2022 4:44 PM FLORAL DESIGN TEACHER 04/11/2022 4:46 PM FLORAL DESIGN TEACHER Narrative [facility] - 04/16/2022 10:10 AM FLORAL DESIGN TEACHER Performed at: [address] [place] [address] [employer] [address] [place] [id number] Snow Removing Supervisor: Joe Cooper MD, Phone: [phone] Bryanna Gordon NP LABORATORY Final Result [facility] ([facility]) [address] [place] [address], from Last 3 Months or Most Recently Relevant to Health Maintenance Insurance [facility] [address] [place] [phone] * Guarantor: Laquita Acosta Account Type Relation to Patient Date of Phone Billing Address Personal/Family Ui Programmer [address] [place] [address] [place] [address] Care Teams Venetian Blind Worker Relationship Specialty Start Date End Date Bryanna Gordon NP [address] [place] [address] PCP - General Nurse Practitioner - Family 12/05/21
[2024-07-23 02:57] VITALS: BP 107/65; PULSE 100; RESP 16; TEMP 36.7; O2SAT 96; BMI 21.3
--- NOTE | 2024-07-23 03:02 | CRLHL7_ITS ---
For Patients: As a result of the Cures Act, medical imaging exams and procedure reports are released immediately into your electronic medical record. You may view this report before your referring provider. If you have questions, please contact your health care provider. Indication: Punch injury. Technique: Right wrist 3 views. Comparison: None. Findings: Bones: Alignment is normal. No fractures or bone lesions. Joint spaces: Joint spaces are well maintained. No degenerative changes. Soft tissues: Unremarkable. Impression: No acute fracture or dislocation. Dictated by Thuan Euceda MD @ 07/23/2024 3:28:48 AM (Electronically Signed)
--- NOTE | 2024-07-23 03:02 | CRLHL7_ITS ---
For Patients: As a result of the Century Cures Act, medical imaging exams and procedure reports are released immediately into your electronic medical record. You may view this report before your referring provider. If you have questions, please contact your health care provider. Indication: Trauma. Technique: Right hand 3 views. Comparison: None. Findings: Bones: No acute fracture or dislocation. Distal ulna appears posteriorly displaced. Joint spaces: Unremarkable. Soft tissues: Unremarkable. Impression: Possible distal ulnar dislocation versus projectional artifact. Correlate with exam. No acute fracture identified. Dictated by Thuan Euceda MD @ 07/23/2024 3:34:07 AM (Electronically Signed)
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
--- OUTSIDE RECORDS SUMMARY | 2024-07-23 03:35 | XMS_ITS | Clinical Summary ---
Author Organization [employer] [facility] Address [address] [place] [address] Care Team Providers Care Greenkeeper Name Role Phone Bryanna Gordon NP Primary [...] Type Department Care Team Description 06/27/2024 Refill [facility] [address] [facility] [address] Nancy Vargas, Refill Request (Fluoxetine) 06/24/2024 12:40 PM CDT Office Visit [facility] 1400 [facility] [place] [address] Linette Iglesias MD Well Child (18 year old) 06/24/2024 Telephone [facility] [address] [facility] [place] [address] Bryanna Gordon NP Contraception 06/24/2024 Travel 05/31/2024 Travel 05/27/2024 10:40 AM FOREMAN SHIPPING DEPARTMENT Office Visit [facility] [address] [place] [address] Karen Del Valle MD Confirmation (Had 4 positive tests at home. ) 05/27/2024 Travel 04/29/2024 10:50 AM FOREMAN SHIPPING DEPARTMENT Office Visit [facility] [address] [place] [address] Nancy Vargas DO Vaginal Bleeding (D & [...] on file Legal Sex Female 7:19 AM FOREMAN SHIPPING DEPARTMENT Gender Identity Not on file Sexual Orientation [...] NEOUS Comments:patient had D &C done at [facility] Summary Episode Dates Number of Fetuses Estimated [...] as well. Patient location (originating site city/formerly [facility]): [place], [place] Provider location (distant site city/state): [place], [place] Video/Phone start time (include am/pm designation): [...] of estimated date of delivery: No Thalassemia (Pashto, Danish, Mediterranean, or background): MCV less than 80: No Neural tube defect (Meningomyelocele, Spina bifida, or Anencephaly): No Congenital heart defect: No Down syndrome: No Denis-Sachs (Ashkenazi Baptism, Cajun, Urdu Irwin): No Magda disease (Ashkenazi Baptism): No Familial dysautonomia (Ashkenazi Baptism): No Sickle cell disease or trait (): No Hemophilia or other blood disorders: No Muscular dystrophy: No Cystic fibrosis: No Geary's chorea: No Intellectual disability and/or autism: No [...] . - Provided online resources such as [employer] and [employer] Amelia. Discussed ccmt-ejr-mfsrxes medications, and follow up. - Encouraged patient to call clinic at [phone] with any vaginal bleeding, fluid leaking from [...] 03/25/2024 12:40 PM [facility] Skylar Bliss RN .................... 02/22/2024 1:55 PM MAN SHIPPING DEPARTMENT Last Filed Vital Signs Vital Sign Reading Time Taken Comments Blood Pressure 101/68 06/24/2024 12:50 PM CDT Pulse 103 06/24/2024 12:50 PM CDT Temperature 36.7 C (98.1 F) 06/24/2024 12:50 PM CDT Respiratory Rate 14 04/21/2023 2:26 PM FOREMAN SHIPPING DEPARTMENT Oxygen Saturation 98% 06/24/2024 12:50 PM CDT [...] options ,SERUM QUALITATIVE Routine 05/27/2024 11:12 AM FOREMAN SHIPPING DEPARTMENT Positive urine test (HC) URINE POCT Routine 05/27/2024 10:54 AM FOREMAN SHIPPING DEPARTMENT Positive urine test (HC) GC CHLAMYDIA TRACH PROBE Routine 05/27/2024 10:54 AM FOREMAN SHIPPING DEPARTMENT Screening examination for STI LC HIV-1/O/2, 4TH GENERATION Routine 04/11/2022 4:44 PM FOREMAN SHIPPING DEPARTMENT Screening for HIV (human immunodeficiency virus) from Last 3 Months or Most Recently Relevant to Health Maintenance Results * POCT Urine (06/24/2024 1:11 PM CDT) Only the most recent of2 resultswithin the time period is included. POC HCG URINE NEGATIVE NEGATIVE [facility] Urine URINE SPECIMEN / Unknown 06/24/2024 1:11 PM CDT 06/24/2024 1:12 PM CDT Linette Iglesias MD URINE Final Resul t [facility] [address] [place] [address], [facility] [address] [place] [address] * ,SERUM QUALITATIVE (05/27/2024 11:12 AM FOREMAN SHIPPING DEPARTMENT) HCG, TOTAL, QL NEGATIVE See Note: Fwd: [employer] Comment: Reference Range: Reference Range Non-: Negative : Positive Blood BLOOD SPECIMEN / Unknown 05/27/2024 11:12 AM FOREMAN SHIPPING DEPARTMENT 05/27/2024 11:12 AM FOREMAN SHIPPING DEPARTMENT Karen Del Valle MD CHEMISTRY Fin al Result [employer] [facility] [address] [place] [address], [place] [phone] Fwd: [employer] [address] [facility] [place] [address] * GC & CHLAMYDIA DNA PCR [[id number]] (05/27/2024 10:54 AM FOREMAN SHIPPING DEPARTMENT) CHLAMYDIA PROBE Negative 8:18 PM FOREMAN SHIPPING DEPARTMENT [facility] N GONORRHOEAE PROBE Negative 05/27/2024 8:18 PM FOREMAN SHIPPING DEPARTMENT [facility] Other URINE SPECIMEN / Unknown Non-Blood / Unknown 05/27/2024 10:54 AM FOREMAN SHIPPING DEPARTMENT 05/27/2024 10:54 AM FOREMAN SHIPPING DEPARTMENT Karen Del Valle MD MICROBIOLOGY Fin al Result [facility] [address] [place] [address], * LC HIV-1/O/2, 4TH GENERATION (04/11/2022 4:44 PM FOREMAN SHIPPING DEPARTMENT) [facility] HIV Scr 4th Gen Non Reactive Non Reactive 04/16/2022 10:10 AM FOREMAN SHIPPING DEPARTMENT LAB ESOTERIC TESTING (CET) Comment: HIV Negative HIV-1/HIV-2 antibodies and HIV-1 p24 antigen were NOT detected. There is no laboratory evidence of HIV infection. Blood BLOOD SPECIMEN / Unknown Venipuncture / Unknown 04/11/2022 4:44 PM FOREMAN SHIPPING DEPARTMENT 04/11/2022 4:46 PM FOREMAN SHIPPING DEPARTMENT Narrative [facility] (CET) - 04/16/2022 10:10 AM FOREMAN SHIPPING DEPARTMENT Performed at: [address] [place] [address] [employer] [address] [place] [id number] Goods Layer: Joe Cooper MD, Phone: [phone] Bryanna Gordon NP LABORATORY Final Result [facility] (CET) [address] [place] [address], from Last 3 Months or Most Recently Relevant to Health Maintenance Insurance [facility] [address] [place] [id number] * Guarantor: Laquita Acosta Account Type Relation to Patient Date of Phone Billing Address Personal/Family Tour Coordinator [address] [place] [address] MEDICAID Care Teams Greenkeeper Relationship Specialty Start Date End Date Bryanna Gordon NP [address] [place] [address] PCP - General Nurse Practitioner - Family 12/05/21
[2024-07-23] MEDS: IBUPROFEN 200 MG TABLET 600 MG PO (03:36)
== END 2024-07-23 03:49 | disposition home or self-care (01) ==
LOC: ED 03:32
PROVIDERS: Emergency Provider Family Medicine
DX: S63.91XA Sprain of unspecified part of right wrist and hand, initial encounter (principal); W22.09XA Striking against other stationary object, initial encounter
CPT/HCPCS: 73110; 73130; 99283; A9270

== ENCOUNTER 2024-09-17 02:07 | Outpatient (CLI) | payer MEDICAID, SELFPAY ==
--- OUTSIDE RECORDS SUMMARY | 2021-01-19 05:45 | XMS_ITS | Continuity of Care Document ---
Author Organization [facility] Address [address] [place] [phone] Phone Care Team Providers Care Filter Washer And Presser Name Role Phone Cheryl Ramires Unavailable Unavailable Allergies, Adverse Reactions, Alerts Substance Reaction Status Criticality No Known Allergies Active No Inform ation Procedures Procedure Date OFFICE/OUTPATIENT VISIT, [facility] Advance Directives Directive Yes / No Effective Date File Name No Information Encounters Encounter Description Practice Location Reason(s) For Visit Diagnoses Date Provider Providers Copied on Encounter OFFICE/OUTPA TIENT VISIT, [facility], [address] [place] [address], [id number] , tel:[phone] [facility] Dizziness (chief complaint) Contracept ion (chief complaint) Body mass index (BMI) 19 or less, adultDizzinessEncount er for education about contraceptive use 1 Lucita Luna. [address] [place] [address], [id number] , . tel:[phone] Referring Provider: Cheryl Landrum, [address] [place] [address], [id number] . tel:[phone] Family History Family Member Type Diagnosis Age At Onset No Information Payers Payer name Insurance type Covered green party ID Authortatya raegan(s) Francia [facility] [id number] Social History Type Description Quantity Date Captured [...] Mental Status Date Cognitive Assessment Orientation - [place] ed to time, place, person, situation. Patient Care Teams Name Effective Dates (start - stop) Status Members No Information
--- OUTSIDE RECORDS SUMMARY | 2024-09-20 00:31 | XMS_ITS | Clinical Summary ---
Author Organization [facility] Address [address] [place] [address] Care Team Providers Care Wash House Worker Name Role Phone Bryanna Gordon NP Primary Care Provider [phone] Allergies No known active allergies Medications FLUoxetine [...] No problems associated with this episode. [place] RN.....03/26/2020 9:29 AM Encounters Date Type Department Care Team Description 09/07/2024 Refill [facility] [address] [place] [address] Linette Iglesias MD Refill Request (FLUoxetine 10 mg capsule /FLUoxetine 20 mg capsule /hydrOXYzine HCL 25 mg tablet ) 06/27/2024 Refill [facility] [address] [place] [address] Nancy Vargas DO Refill Request (Fluoxetine) 06/24/2024 12:40 PM CDT Office Visit [facility] [address] [place] [address] Linette Iglesias MD Well Child (18 year old) 06/24/[address] [phone] Bryanna Gordon NP Contraception 06/24/2024 [...] on file Legal Sex Female 7:19 AM JEWELRY DRILL OPERATOR Gender Identity Not on file Sexual Orientation [...] NEOUS Comments:patient had D &C done at [facility] Summary Episode Dates Number of Fetuses Estimated Date of Delivery 02/22/2024 - Present (09/20/2024) 10/14/2024 (set by Skylar Bliss, [place] on [...] as well. Patient location (originating site city/state): [place], [place] Provider location (distant site city/state): [place], [place] Video/Phone start time (include am/pm designation): [...] of estimated date of delivery: No Thalassemia (Iraqi, Bengali, Mediterranean, or background): MCV less than 80: No Neural tube defect (Meningomyelocele, Spina bifida, or Anencephaly): No Congenital heart defect: No Down syndrome: No Denis-Sachs (Ashkenazi Nondenominational, Cajun, Sudanese Maldivian): No Magda disease (Ashkenazi Nondenominational): No Familial dysautonomia (Ashkenazi Nondenominational): No Sickle cell disease or trait (): No Hemophilia or other blood disorders: No Muscular dystrophy: No Cystic fibrosis: No Gibson's chorea: No Intellectual disability and/or autism: No [...] . - Provided online resources such as [employer] Care and [employer]. Discussed [id number] medications, and follow up. - Encouraged patient to call clinic at [phone] with any vaginal bleeding, fluid leaking from [...] Center 03/25/2024 12:40 PM Linette Iglesias MD [facility] Skylar Bliss RN .................... 02/22/2024 1:55 PM LRY DRILL OPERATOR Last Filed Vital Signs Vital Sign Reading Time Taken Comments Blood Pressure 101/68 06/24/2024 12:50 PM CDT Pulse 103 06/24/2024 12:50 PM CDT Temperature 36.7 C (98.1 F) 06/24/2024 12:50 PM CDT Respiratory Rate 14 04/21/2023 2:26 PM JEWELRY DRILL OPERATOR Oxygen Saturation 98% 06/24/2024 12:50 PM CDT [...] series) 05/19/2023 04/21/2023 COVID-19 vaccine series ( season) 2023 Influenza Vaccine (Season Ended) 2024 Chlamydia for age 16-24 05/27/2025 05/27/19, 04/21/2023, 04/20/2020, Additional history exists BMI (ht [...] CHLAMYDIA TRACH PROBE Routine 05/27/2024 10:54 AM JEWELRY DRILL OPERATOR Screening examination for STI LC HIV-1/O/2, 4TH GENERATION Routine 04/11/2022 4:44 PM JEWELRY DRILL OPERATOR Screening for HIV (human immunodeficiency virus) from Last 3 Months or Most Recently Relevant to Health Maintenance Results * POCT Urine (06/24/2024 1:11 PM CDT) POC HCG URINE NEGATIVE NEGATIVE [facility] Urine URINE SPECIMEN / Unknown 06/24/2024 1:11 PM CDT 06/24/2024 1:12 PM CDT us Linette Iglesias MD URINE Final Resul t [facility] [address] [place] [address], [facility] [address] [place] [address] * GC & CHLAMYDIA DNA PCR [[id number]] (05/27/2024 10:54 AM JEWELRY DRILL OPERATOR) CHLAMYDIA PROBE Negative 8:18 PM JEWELRY DRILL OPERATOR [facility] N GONORRHOEAE PROBE Negative 05/27/2024 8:18 PM JEWELRY DRILL OPERATOR [facility] Other URINE SPECIMEN / Unknown Non-Blood / Unknown 05/27/2024 10:54 AM JEWELRY DRILL OPERATOR 05/27/2024 10:54 AM JEWELRY DRILL OPERATOR Karen Del Valle MD MICROBIOLOGY Fin al Result [facility] [address] [place] [address], [place] * LC HIV-1/O/2, 4TH GENERATION (04/11/2022 4:44 PM JEWELRY DRILL OPERATOR) HIV Scr 4th Gen Non Reactive Non Reactive 04/16/2022 10:10 AM JEWELRY DRILL OPERATOR [facility] Comment: HIV Negative HIV-1/HIV-2 antibodies and HIV-1 p24 antigen were NOT detected. There is no laboratory evidence of HIV infection. Blood BLOOD SPECIMEN / Unknown Venipuncture / Unknown 04/11/2022 4:44 PM JEWELRY DRILL OPERATOR 04/11/2022 4:46 PM JEWELRY DRILL OPERATOR Narrative [facility] - 04/16/2022 10:10 AM JEWELRY DRILL OPERATOR Performed at: [address] [place] [address] [place] [address] [address], [place], [place] [id number] [employer] Artillery Cannoneer: Joe Cooper MD, Phone: [phone] Bryanna Gordon NP LABORATORY Final Result [facility] ([facility]) [address] [place] [address], from Last 3 Months or Most Recently Relevant to Health Maintenance Insurance [facility] [place] * Guarantor: Laquita Acosta Account Type Relation to Patient Date of Phone Billing Address Personal/Family Card Tape Converter Operator [address] [place] [address] MEDICAID Dept of Human Services [facility] [address] Care Teams Wash House Worker Relationship Specialty Start Date End Date Bryanna Gordon NP [address] [facility] [place] [address] PCP - General Nurse Practitioner - Family 12/05/21
== END 2024-09-17 02:08 | disposition home or self-care (01) ==
LOC: AMB 09-19 10:31
PROVIDERS: Visit Provider Family Medicine
DX: S09.90XA Unspecified injury of head, initial encounter (principal); T14.8XXA Other injury of unspecified body region, initial encounter; Y04.2XXA Assault by strike against or bumped into by another person, initial encounter; Y92.9 Unspecified place or not applicable
CPT/HCPCS: A0998

== ENCOUNTER 2024-09-17 02:48 | Outpatient (CLI) | payer MEDICAID, SELFPAY ==
--- OUTSIDE RECORDS SUMMARY | 2021-01-19 05:45 | XMS_ITS | Continuity of Care Document ---
Author Organization [facility] Address [address] [place] [phone] Phone Care Team Providers Care Range Feeder Name Role Phone Cheryl Ramires Unavailable Unavailable Allergies, Adverse Reactions, Alerts Substance Reaction Status Criticality No Known Allergies Active No Inform ation Procedures Procedure Date OFFICE/OUTPATIENT VISIT, [facility] Advance Directives Directive Yes / No Effective Date File Name No Information Encounters Encounter Description Practice Location Reason(s) For Visit Diagnoses Date Provider Providers Copied on Encounter OFFICE/OUTPA TIENT VISIT, [facility], [address] [place] [address], [id number] , tel:[phone] [facility] Dizziness (chief complaint) Contracept ion (chief complaint) Body mass index (BMI) 19 or less, adultDizzinessEncount er for education about contraceptive use 1 Lucita Luna. [address] [place] [address], [id number] , . tel:[phone] Referring Provider: Cheryl Landrum, [address] [place] [address], [id number] . tel:[phone] Family History Family Member Type Diagnosis Age At Onset No Information Payers Payer name Insurance type Covered green party ID Authortatya raegan(s) Francia [facility] [id number] Social History Type Description Quantity Date Captured [...] Mental Status Date Cognitive Assessment Orientation - [place] ed to time, place, person, situation. Patient Care Teams Name Effective Dates (start - stop) Status Members No Information
== END 2024-09-17 02:49 | disposition home or self-care (01) ==
LOC: AMB 09-19 10:35
PROVIDERS: Visit Provider Family Medicine
DX: S09.90XA Unspecified injury of head, initial encounter (principal); Y04.0XXA Assault by unarmed brawl or fight, initial encounter; Y92.003 Bedroom of unspecified non-institutional (private) residence as the place of occurrence of the external cause
CPT/HCPCS: A0425; A0429

== ENCOUNTER 2024-09-17 03:04 | Emergency (ER) | payer MEDICAID, SELFPAY ==
--- OUTSIDE RECORDS SUMMARY | 2021-01-19 05:45 | XMS_ITS | Continuity of Care Document ---
Author Organization [facility] Address [address] [place] [phone] Phone Care Team Providers Care Correctional Nurse Name Role Phone Cheryl Ramires Unavailable Unavailable Allergies, Adverse Reactions, Alerts Substance Reaction Status Criticality No Known Allergies Active No Inform ation Procedures Procedure Date OFFICE/OUTPATIENT VISIT, [facility] Advance Directives Directive Yes / No Effective Date File Name No Information Encounters Encounter Description Practice Location Reason(s) For Visit Diagnoses Date Provider Providers Copied on Encounter OFFICE/OUTPA TIENT VISIT, [facility], [address] [place] [address], [id number] , tel:[phone] [facility] Dizziness (chief complaint) Contracept ion (chief complaint) Body mass index (BMI) 19 or less, adultDizzinessEncount er for education about contraceptive use 1 Lucita Luna. [address] [place] [address], [id number] , . tel:[phone] Referring Provider: Cheryl Landrum, [address] [place] [address], [id number] . tel:[phone] Family History Family Member Type Diagnosis Age At Onset No Information Payers Payer name Insurance type Covered constitution party ID Authortatya raegan(s) Francia [facility] [id number] Social History Type Description Quantity Date Captured Comments Alcohol Use Details Unknown Caffeine Use Details Unknown Tobacco Use Status Current non-smoker Smoking Status Never smoker Non-Smoking Tobacco Use Details : No Details Available : No Details Available Sex Female Vital Signs Date / Time: Height Weight BMI Pulse Rate Blood Pressure Temperature Respiratory Rate Body Surface Area Head Circumference Head Circ. Percentile Wt./. Percentile BMI percentile Pulse Ox Inhaled Ox 11:31 AM 67.00 in 47.083 kg (103.80 lbs) 16.2 6 kg/m eter (2) 98 /min 109/64 mm[Hg] 97.70 F 16 /min 2 100 % 11:36 AM 94/65 mm[Hg] Chief Complaint And Reason For Visit From encounter dated '01/19/2021 10:45'. Dizziness (chief complaint). Description: Onset was 1 day ago. The client describes it as (an) light-headed. It occurs while standing. Denies aggravating factors. Relieving factors include rest. Pertinent negatives include chest pain, diplopia, fever, headache, hearing loss, loss of consciousness, nausea, palpitations, tinnitus, vision loss, vomiting and weakness. Additional information: Patient states this happened yesterday and it improved after she rested. She and her mother would like to discuss control. Contraception (chief complaint). Description: Discussed contraception with patient. Patient is not experiencing fatigue, headache, nausea, palpitations and vomiting. Additional information: Patient would like to start control and have a test today. Reason For Referral Reason For Referral No Information Plan Of Treatment Date Type Action Status Goal Lifestyle education regardin g diet completed History Of Present Illness Encounter Date Complaint History Of Prese nt Illness Dizziness Onset was 1 day ago. The client describes it as (an) light-headed. It occurs while standing. Denies aggravating factors. Relieving factors include rest. Pertinent negatives include chest pain, diplopia, fever, headache, hearing loss, loss of consciousness, nausea, palpitations, tinnitus, vision loss, vomiting and weakness. Additional information: Patient states this happened yesterday and it improved after she rested. She and her mother would like to discuss control. Contraception Discussed contra ception with patient. Patient is not experiencing fatigue, headache, nausea, palpitations and vomiting. Additional information: Patient would like to start control and have a test today. Functional Status Date Functional Assessmen t No Information Instructions Date Instruction Additional Infor meryl Education provided w wilber educational documents on various options of controlPatient and patient's mother will discuss options at home and follow up in clinic for test and discussion on choicing a control option. Patient verbalizes understanding and agreement to plan of care. All questions answered. Related to Encounter for education about contraceptive use Patient instructed t o increase fluids and eat an well balanced diet dehydration and lack of nutrition can cause dizziness. Patient will follow up if these symtpoms do not resolve or worsen.Patient verbalizes understanding and agreement to plan of care. All questions answered. Related to Dizziness Exercises education, guidance, and counseling Related to Body mass index [BMI] 19.9 or less, adult Lifestyle education regarding di et Related to Body mass index [BMI] 19.9 or less, adult Assessments Type Assessment Date assessment Body mass index (BMI) 19 or less , adult assessment Dizziness assessment Encounter for education about co ntraceptive use Mental Status Date Cognitive Assessment Orientation - [place] ed to time, place, person, situation. Patient Care Teams Name Effective Dates (start - stop) Status Members No Information
--- OUTSIDE RECORDS SUMMARY | 2021-01-19 05:45 | XMS_ITS | Continuity of Care Document ---
Author Organization [facility] Address [address] [place] [phone] Phone Care Team Providers Care Radiology Technician Name Role Phone Cheryl Ramires Unavailable Unavailable Allergies, Adverse Reactions, Alerts Substance Reaction Status Criticality No Known Allergies Active No Inform ation Procedures Procedure Date OFFICE/OUTPATIENT VISIT, [facility] Advance Directives Directive Yes / No Effective Date File Name No Information Encounters Encounter Description Practice Location Reason(s) For Visit Diagnoses Date Provider Providers Copied on Encounter OFFICE/OUTPA TIENT VISIT, [facility], [address] [place] [address], [id number] , tel:[phone] [facility] Dizziness (chief complaint) Contracept ion (chief complaint) Body mass index (BMI) 19 or less, adultDizzinessEncount er for education about contraceptive use 1 Lucita Luna. [address] [place] [address], [id number] , . tel:[phone] Referring Provider: Cheryl Landrum, [address] [place] [address], [id number] . tel:[phone] Family History Family Member Type Diagnosis Age At Onset No Information Payers Payer name Insurance type Covered green party ID Authortatya raegan(s) Francia [facility] [id number] Social History Type Description Quantity Date Captured [...] Mental Status Date Cognitive Assessment Orientation - [place] ed to time, place, person, situation. Patient Care Teams Name Effective Dates (start - stop) Status Members No Information
--- OUTSIDE RECORDS SUMMARY | 2024-09-17 03:06 | XMS_ITS | Patient Health Record ---
Author Organization [facility] Physician Sandy restrepo Billing Info Address [address] [place], [place] [id number] Care Team Providers Care Paint Laboratory Technician Name Role Phone ELINA MIRZA Primary Care Provider Allergies No Known Allergies Reason For Referral No Information Plan Of Treatment No Information Insurance Providers Payer Name Payer Address Payer Phone Subscriber Number Group Number Insured Name Patient Relationship to Insured Coverage Start Date Coverage End Date [facility] [address] [place] [address] [id number] Karlene Gaviria Self - patient is the insured 2 2 Medical (General) History Surgical History Surgery Date(Month/Year)
--- OUTSIDE RECORDS SUMMARY | 2024-09-17 03:06 | XMS_ITS | Clinical Summary ---
Author Organization [employer] [facility] Address [address] [place] [address] Care Team Providers Care Design Studio Consultant Name Role Phone Bryanna Gordon NP Primary Care Provider Allergies No known active allergies Medications FLUoxetine 10 mg capsuleIndicati ons:Depression, recurrent,Anxie ty Take 1 Capsule (10 mg) by mouth once daily in the morning. Take together with 20 mg capsule for total of 30 mg daily. 93 Capsule 2 5 Active FLUoxetine 20 mg capsuleIndicati ons:Depression, recurrent,Anxie ty Take 1 Capsule (20 mg) by mouth once daily in the morning. 93 Capsule 2 5 Active hydrOXYzine HCL 25 mg tabletIndicatio ns:Anxiety Take 1 Tablet (25 mg) by mouth every 6 hours if needed for Anxiety. 25 Tablet 5 Active FLUoxetine 20 mg capsuleIndicati ons:Depression, recurrent,Anxie ty Take 1 Capsule (20 mg) by mouth once daily in the morning. 93 Capsule 3 5 09/10/19 25 Discontinu ed(*Availa bility/For mulary change/Cos t of medication ) hydrOXYzine HCL 25 mg tabletIndicatio ns:Anxiety Take 1 Tablet (25 mg) by mouth every 6 hours if needed for Anxiety. 25 Tablet 1 5 09/10/19 25 Discontinu ed(Reorder (E-cancel not sent)) FLUoxetine 10 mg capsuleIndicati ons:Depression, recurrent,Anxie ty Take 1 Capsule (10 mg) by mouth once daily in the morning. Take together with 20 mg capsule for total of 30 mg daily. 93 Capsule 3 5 09/10/19 25 Discontinu ed(*Availa bility/For mulary change/Cos t of medication ) Hospital, Clinic, or Other Facility Administered Medication [...] No problems associated with this episode. Sabiha San Juan RN.....03/26/2020 9:29 AM Encounters Date Type Department Care Team Description 09/07/2024 Refill [facility] [address] [place] [address] Linette Iglesias MD Refill Request (FLUoxetine 10 mg capsule /FLUoxetine 20 mg capsule /hydrOXYzine HCL 25 mg tablet ) 06/27/2024 Refill [facility] [address] [place] [address] Nancy Vargas DO Refill Request (Fluoxetine) 06/24/2024 12:40 PM CDT Office Visit [facility] [address] [place] [address] Linette Iglesias MD Well Child (18 year old) 06/24/[address] [address] Bryanna Gordon NP Contraception 06/24/2024 Travel from Last 3 Months Immunizations Immunization [...] on file Legal Sex Female 7:19 AM USER SUPPORT SPECIALIST Gender Identity Not on file Sexual Orientation [...] NEOUS Comments:patient had D &C done at [facility] Summary Episode Dates Number of Fetuses Estimated Date of Delivery 02/22/2024 - Present (09/17/2024) 10/14/2024 (set by Skylar Bliss, ISRA[place] on [...] as well. Patient location (originating site city/state): [place], [place] Provider location (distant site city/state): [place], [place] Video/Phone start time (include am/pm designation): [...] of estimated date of delivery: No Thalassemia (Bahraini, Amharic, Mediterranean, or background): MCV less than 80: No Neural tube defect (Meningomyelocele, Spina bifida, or Anencephaly): No Congenital heart defect: No Down syndrome: No Denis-Sachs (Ashkenazi Anabaptism, Cajun, Hong Konger Sudanese): No Magda disease (Ashkenazi Anabaptism): No Familial dysautonomia (Ashkenazi Anabaptism): No Sickle cell disease or trait (): No Hemophilia or other blood disorders: No Muscular dystrophy: No Cystic fibrosis: No Catoosa's chorea: No Intellectual disability and/or autism: No [...] . - Provided online resources such as [facility] and [employer]. Discussed kxmg-dph-yhiipow medications, and follow up. - Encouraged patient to call clinic at [phone] with any vaginal bleeding, fluid leaking from [...] Center 03/25/2024 12:40 PM Linette [facility]lesias MD [facility] Skylar Bliss RN .................... 02/22/2024 1:55 PM SUPPORT SPECIALIST Last Filed Vital Signs Vital Sign Reading Time Taken Comments Blood Pressure 101/68 06/24/2024 12:50 PM CDT Pulse 103 06/24/2024 12:50 PM CDT Temperature 36.7 C (98.1 F) 06/24/2024 12:50 PM CDT Respiratory Rate 14 04/21/2023 2:26 PM USER SUPPORT SPECIALIST Oxygen Saturation 98% 06/24/2024 12:50 PM CDT Inhaled Oxygen Concentration - - Weight 63.1 kg (139 lb 3.2 oz) 06/24/2024 12:50 PM CDT Height 168 cm (5' 6.14) 06/24/2024 12:50 PM CDT Body Mass Index 22.37 06/24/2024 12:50 PM CDT Plan of Treatment Upcoming Encounters Date Type Department Care Team (Late st Contact Info) Description 09/22/2024 1:15 PM CDT Nurse/Clinic Staff Only [facility] [address] [place] [address] [phone] Health Maintenance Due Date Last Done Comments Hepatitis C screening for age 18-79 2022 Hepatitis B series for 19+ (2 of 3 - 3-dose series) 05/19/2023 04/21/2023 COVID-19 vaccine series ( - 2023- season) 2023 Influenza Vaccine (Season Ended) 2024 Chlamydia for age 16-24 05/27/2025 05/27/19 25, 04/21/2023, 04/20/2020, Additional history exists BMI (ht and wt on same day) for age 18+ 06/24/2025 06/24/2024, 05/27/2024, 04/21/2023 Depression screening for age 12+ 06/24/2025 06/24/2024 Well Child Check for age 3-20 06/24/2025 06/24/2024, 04/21/2023, 04/11/2022 Tetanus booster 04/11/2032 04/11/2022 HIV for age [...] 1:11 PM CDT Evaluation regarding contraception options GC CHLAMYDIA TRACH PROBE Routine 05/27/2024 10:54 AM USER SUPPORT SPECIALIST Screening examination for STI LC HIV-1/O/2, 4TH GENERATION Routine 04/11/2022 4:44 PM USER SUPPORT SPECIALIST Screening for HIV (human immunodeficiency virus) from Last 3 Months or Most Recently Relevant to Health Maintenance Results * POCT Urine (06/24/2024 1:11 PM CDT) POC HCG URINE NEGATIVE NEGATIVE [facility] Urine URINE SPECIMEN / Unknown 06/24/2024 1:11 PM CDT 06/24/2024 1:12 PM CDT Linette Iglesias MD URINE Final Resul t Performing Organization Address City/[facility]/ZIP Co de Phone Number [facility] [address] [place] [address], [facility] [address] [place] [address] * GC & CHLAMYDIA DNA PCR [[id number]] (05/27/2024 10:54 AM USER SUPPORT SPECIALIST) CHLAMYDIA PROBE Negative 8:18 PM USER SUPPORT SPECIALIST [facility] N GONORRHOEAE PROBE Negative 05/27/2024 8:18 PM USER SUPPORT SPECIALIST [facility] Other URINE SPECIMEN / Unknown Non-Blood / Unknown 05/27/2024 10:54 AM USER SUPPORT SPECIALIST 05/27/2024 10:54 AM USER SUPPORT SPECIALIST us Karen Del Valle MD MICROBIOLOGY Fin al Result Performing Organization Address City/[facility]/ZIP Co de Phone Number [facility] [address] [place] [address], * LC HIV-1/O/2, 4TH GENERATION (04/11/2022 4:44 PM USER SUPPORT SPECIALIST) HIV Scr 4th Gen Non Reactive Non Reactive 04/16/2022 10:10 AM USER SUPPORT SPECIALIST [facility] Comment: HIV Negative HIV-1/HIV-2 antibodies and HIV-1 p24 antigen were NOT detected. There is no laboratory evidence of HIV infection. Blood BLOOD SPECIMEN / Unknown Venipuncture / Unknown 04/11/2022 4:44 PM USER SUPPORT SPECIALIST 04/11/2022 4:46 PM USER SUPPORT SPECIALIST Narrative [facility] ([facility]) - 04/16/2022 10:10 AM USER SUPPORT SPECIALIST Performed at: - [facility] [place] [address] [id number] Management Development Specialist: Joe Cooper MD, Phone: [phone] Bryanna Gordon NP LABORATORY Final Result [facility] ([facility]) [address] [place] [address], from Last 3 Months or Most Recently Relevant to Health Maintenance Insurance [facility] * Guarantor: Laquita Acosta Account Type Relation to Patient Date of Phone Billing Address Personal/Family Senior Net Engineer [address] [place] [address] MEDICAID Care Teams Design Studio Consultant Relationship Specialty Start Date End Date Bryanna Gordon NP [address] [place] [address] PCP - General Nurse Practitioner - Family 12/05/21
[2024-09-17 03:09] VITALS: BP 106/75; PULSE 85; RESP 18; TEMP 36.7; O2SAT 99; BMI 21.0
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
[2024-09-17] MEDS: ACETAMINOPHEN 500 MG TABLET 1000 MG PO (03:58)
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
[2024-09-17 04:46] VITALS: BP 111/68; PULSE 81; RESP 18; TEMP 36.7; O2SAT 99
[2024-09-17 04:47] VITALS: BP 111/68; PULSE 81; RESP 18; TEMP 36.7
== END 2024-09-17 04:49 | disposition home or self-care (01) ==
PROVIDERS: Emergency Provider Family Medicine
DX: S00.212A Abrasion of left eyelid and periocular area, initial encounter (principal); S60.511A Abrasion of right hand, initial encounter; Y04.8XXA Assault by other bodily force, initial encounter
CPT/HCPCS: 73130; 99283; 99284; A9270